=== PATIENT | female | born 1975 | race African-American/Black ===

== ENCOUNTER 2016-11-04 20:03 | Emergency (ER) | payer MEDICARE, OTHER ==
[~2016-11-04] VITALS: Ht 167.6 cm; Wt 104.3 kg
[~2016-11-04 20:03] MED LIST: ACET-704 PO; AMOX1TAB58 PO; ASPI81TA2 PO; AZIT250T PO; BECL8.7A IH; BYSTOLIC20 MG PO; CLOP75TA PO; DIAZ5TAB PO; DICL100G7; DIGO125T PO; ERGO50007 PO; ESCI10TA10 PO; FENT1PAT15 TD; FURO40TA4 PO; GABA100C6; GABA600T2 PO; HYDR-971 PO; HYDR8TAB PO; LEVO150T5 PO; MAGN400C PO; METO-269 PO; METO25TA9 PO; METO50TA10; ONDA4TAB10 PO; OXYC-244 PO; OXYC-250 PO; OXYC-323 PO; Oxygen; PANT40GR PO; POLY17PO5 PO; POTA20PA PO; POTA20TA82 PO; PRED20TA PO; SIMV20TA3 PO; SPIR50TA2 PO; TORS20TA2 PO; TRAZ100T12 PO; VALS40TA2 PO; VALS40TA9; VENTOLIN HFA18 GM; VENTOLIN HFA18 GM INH
[2016-11-04] MEDS ORDERED: NITROGLYCERIN SUBLINGUAL 0.4 MG BOTTLE OF 25. SL PRN (20:30)
[2016-11-04] MEDS ORDERED: MORPHINE SULFATE 2 MG/ML DISP.SYRIN. IV PRN (20:30)
[2016-11-04] MEDS ORDERED: ASPIRIN 81 MG TAB.CHEW PO ONE (21:00)
[2016-11-04 22:04] LABS: BASO # 0.1 x10^3/uL (0.0-0.2); BASO % 1 % (0-3); EOS % 2 % (0-3); HEMATOCRIT 43.5 % (36.0-47.0); HEMOGLOBIN 14.1 g/dL (12.0-15.5); LYMPH % 33 % (24-48); MEAN CORPUSCULAR HEMOGLOBIN 30 pg (25-35); MEAN CORPUSCULAR HGB CONC 33 g/dL (31-37); MEAN CORPUSCULAR VOLUME 92 fL (79-100); MONO % 6 % (0-9); NEUT % 58 % (31-73); PLATELET COUNT 272 x10^3/uL (140-400); RED BLOOD COUNT 4.72 x10^6/uL (3.50-5.40); RED CELL DISTRIBUTION WIDTH 14.5 % (11.5-14.5); WHITE BLOOD COUNT 8.9 x10^3/uL (4.0-11.0)
[2016-11-04 22:15] LABS: CALCIUM 9.1 mg/dL (8.5-10.1); GFR 74.3; POTASSIUM 3.1 mmol/L (3.5-5.1)
[2016-11-04 22:20] LABS: ALBUMIN 3.9 g/dL (3.4-5.0); DIRECT BILIRUBIN 0.1 mg/dL (0.0-0.2); TOTAL BILIRUBIN 0.5 mg/dL (0.2-1.0); TOTAL PROTEIN 7.7 g/dL (6.4-8.2)
[2016-11-04] MEDS ORDERED: ONDANSETRON ODT 4 MG TAB.RAPDIS PO ONE (23:00)
[2016-11-04] MEDS ORDERED: SENN-37 PO (23:04)
--- NOTE | 2016-11-04 23:04 | PHYS DOC ---
Past Medical History Past Medical History: A-Fib, Asthma, Bronchitis, CHF, CVA, DVT, GERD, Hypothyroid, [place], Migraines, Stroke, Other Additional Past Medical Histor: cardiomyopathy, graves, A-fib Past Surgical History: , Hysterectomy, Pacemaker Additional Past Surgical Histo: defib, C- pulse device, thyroidectomy, cardiac surgery Alcohol Use: None Drug Use: None Adult General Chief Complaint Chief Complaint: CHEST PAIN HPI HPI 41-year-old female presenting to the emergency department today with generalized abdominal discomfort constipation nausea and chest pain intermittently for 2 days. The pain is moderate nonradiating cramping and without alleviating factors. She denies fevers chills shortness of breath. Review of Systems Review of Systems ROS negative for shortness of breath. Positive for abdominal pain chest pain nausea. Negative for diarrhea. Positive for constipation. Negative for fevers or chills. All other review of systems is negative unless otherwise noted in history of present illness. Current Medications Current Medications Current Medications Medications (Trade) Dose Ordered Sig/Patsy Start Time Stop Time Status Last Admin Dose Admin Aspirin (Children'S Aspirin) 324 mg 1X ONCE 11/04/16 21:00 11/04/16 21:01 DC 11/04/16 22:00 324 MG Morphine Sulfate 2 mg PRN Q1HR PRN 11/04/16 20:30 11/05/16 00:19 DC Nitroglycerin (Nitrostat) 0.4 mg PRN Q5MIN PRN 11/04/16 20:30 11/05/16 00:19 DC Ondansetron HCl (Zofran Odt) 4 mg 1X ONCE 11/04/16 23:00 11/04/16 23:01 DC 11/04/16 22:54 4 MG Allergies Allergies Allergies Coded Allergies Type Severity Reaction Last Updated Verified EVELYN Inhibitors Allergy Severe Anaphylaxis 01/27/16 Yes Trimethobenzamide HCl Allergy Intermediate 01/27/16 Yes iodine Allergy Intermediate Hives 01/27/16 Yes metoclopramide HCl Allergy Intermediate "jaw paralysis" 01/27/16 Yes pneumococcal vaccine Allergy Intermediate unknown 01/27/16 Yes temazepam Allergy Intermediate 01/27/16 Yes tiagabine Allergy Intermediate causes psychosis 01/27/16 Yes NSAIDS (Non-Steroidal Anti-Inflamma Adverse Reaction Intermediate FLUID RETENTION 01/27/16 Yes immune globulin,horse (equine) Adverse Reaction Intermediate HALLUCINATIONS 01/27/16 Yes Physical Exam Physical Exam Constitutional: Well developed, well nourished, no acute distress, non-toxic appearance. HENT: Normocephalic, atraumatic, bilateral external ears normal, oropharynx moist, no oral exudates, nose normal. [] Eyes: PERRLA, EOMI, conjunctiva normal, no discharge. Neck: Normal range of motion, no tenderness, supple, no stridor. Cardiovascular:Heart rate regular rhythm, no murmur [] Lungs & Thorax: Bilateral breath sounds clear to auscultation Abdomen: Soft nontender abdomen without rebound tenderness or guarding present. Negative McBurneys point. Negative Alvarez sign. No ecchymosis present. Skin: Warm, dry, no erythema, no rash. Back: No tenderness, no CVA tenderness. [] Extremities: No tenderness, no cyanosis, no clubbing, ROM intact, no edema. Neurologic: Alert and oriented X 3, normal motor function, normal sensory function, no focal deficits noted. [] Psychologic: Affect normal, judgement normal, mood normal. [] Current Patient Data Vital Signs Vital Signs Date Time Temp Pulse Resp B/P Pulse Ox O2 Delivery O2 Flow Rate FiO2 11/04/16 20:07 98.1 92 16 150/93 97 Room Air 98.1 Lab Values Laboratory Tests Test 11/04/16 21:55 White Blood Count 8.9x10^3/uL (4.0-11.0) Red Blood Count 4.72x10^6/uL (3.50-5.40) Hemoglobin 14.1g/dL (12.0-15.5) Hematocrit 43.5% (36.0-47.0) Mean Corpuscular Volume 92fL (79-100) Mean Corpuscular Hemoglobin 30pg (25-35) Mean Corpuscular Hemoglobin Concent 33g/dL (31-37) Red Cell Distribution Width 14.5% (11.5-14.5) Platelet Count 272x10^3/uL (140-400) Neutrophils (%) (Auto) 58% (31-73) Lymphocytes (%) (Auto) 33% (24-48) Monocytes (%) (Auto) 6% (0-9) Eosinophils (%) (Auto) 2% (0-3) Basophils (%) (Auto) 1% (0-3) Neutrophils # (Auto) 5.1x10^3uL (1.8-7.7) Lymphocytes # (Auto) 3.0x10^3/uL (1.0-4.8) Monocytes # (Auto) 0.6x10^3/uL (0.0-1.1) Eosinophils # (Auto) 0.2x10^3/uL (0.0-0.7) Basophils # (Auto) 0.1x10^3/uL (0.0-0.2) Sodium Level 141mmol/L (136-145) Potassium Level 3.1mmol/L (3.5-5.1) L Chloride Level 99mmol/L (98-107) Carbon Dioxide Level 28mmol/L (21-32) Anion Gap 14 (6-14) Blood Urea Nitrogen 19mg/dL (7-20) Creatinine 1.0mg/dL (0.6-1.0) Estimated GFR (Cockcroft-Gault) 74.3 Glucose Level 109mg/dL (70-99) H Calcium Level 9.1mg/dL (8.5-10.1) Total Bilirubin 0.5mg/dL (0.2-1.0) Direct Bilirubin 0.1mg/dL (0.0-0.2) Aspartate Amino Transferase (AST) 53U/L (15-37) H Alanine Aminotransferase (ALT) 33U/L (14-59) Alkaline Phosphatase 75U/L (46-116) Troponin I Quantitative < 0.017ng/mL (0.000-0.055) QY-Bgo-O-Type Natriuretic Peptide 363pg/mL (0-124) H Total Protein 7.7g/dL (6.4-8.2) Albumin 3.9g/dL (3.4-5.0) Lipase 144U/L (73-393) Laboratory Tests 11/04/16 21:55 Laboratory Tests 11/04/16 21:55 EKG EKG [] Sinus rhythm with a mildly tachycardic rate. [place] leftward. Intervals are within normal limits. ST segments are congruent. Radiology/Procedures Radiology/Procedures Chest x-ray shows no acute pneumothorax or infiltrate present. Course & Med Decision Making Course & Med Decision Making Pertinent Labs and Imaging studies reviewed. (See chart for details) 41-year-old female presenting to the emergency department with nonspecific complaints of nausea vomiting generalized abdominal pain and chest pain for greater than 2 days. Vital signs afebrile with a regular heart rate. Mildly hypotension. Otherwise unremarkable. Physical exam was unremarkable. Abdomen was nontender to palpation. We are unable to get an IV on the patient. EKG showed mild tachycardia. ST segments congruent. Chest x-ray showed ICD in place. No acute abnormality present. Labs were obtained which were unremarkable. CBC normal. Chemistry panel showed mild hypokalemia. Otherwise the patient had a negative troponin. Patient's chest pain had been present for 24 hours. On reevaluation she improved mildly. She was able to tolerate oral intake. She was subsequently discharged home to follow up with her primary care physician. Belkys Disclaimer Belkys Disclaimer This electronic medical record was generated, in whole or in part, using a voice recognition dictation system. Departure Departure Impression: Primary Impression: Chest pain Additional Impression: Constipation Disposition: 01 HOME, SELF-CARE Condition: STABLE Referrals: SHUKRI GARCIA (PCP) Patient Instructions: Chest Pain (Nonspecific), Constipation, Adult Additional Instructions: Thank you for allowing us to participate in your care today. Followup with your primary care physician in 3 days if your symptoms do not improve. If you do not have a primary care provider you can ask for a list of our primary care providers. Return to the emergency department you have any new or concerning findings. This should be evaluated by the primary care physician and any necessary consulting services for continued management within a few days after discharge. Return to emergency room if you have any new or concerning symptoms including but not limited to fever, chills, nausea, vomiting, intractable pain, any new rashes, chest pain, shortness of air, uncontrolled bleeding, difficulty breathing, and/or vision loss. You may have been prescribed medication that can change in your level of thinking and ability to operate machinery. These medications include hydrocodone and Ativan. Also, Benadryl has been known to do this as well. Be sure to check with your pharmacist and ask if the medications you've prescribed can affect your level of consciousness. I recommend not operating heavy machinery or driving while on medication such as these. Scripts Sennosides/Docusate Sodium (Senokot-S Tablet)1 Each Tablet1 Tab PO BID #14 TAB Prov:DOREEN NATHAN MD 11/04/16 Problem Qualifiers DOREEN NATHAN MD Nov 04, 2016 23:04
[2016-11-04 23:48] VITALS: BP 103/59
--- NOTE | 2016-11-05 06:12 | EKG ---
[facility] [address] [place] [address] Test Date: 2016-11-04 Test Time: 20:10:28 Pat Name: IVA UNGER Department: Room: Gender: F [employer]: : 1975 Requested By: DOREEN NATHAN Order Number: [id number] Reading MD: Mars Ramon Measurements Intervals [place] Rate: 98 P: 42 [place]: 180 QRS: -28 QRSD: 100 T: 92 QT: 376 QTc: 482 Interpretive Statements SINUS RHYTHM LAD INFERIOR INFARCT NON-SPECIFIC ST/T CHANGES Electronically Signed On 11-06-2016 15:29:45 COMPOSITION BOARD PRESS OPERATOR by Mars Ramon
--- NOTE | 2016-11-05 08:28 | RAD ---
EXAM: Chest, single view. HISTORY: Chest pain. COMPARISON: 09/12/2016. FINDINGS: A frontal view of the chest is obtained. There is no infiltrate, effusion or pneumothorax. The heart is normal in size. There is a cardiac pacemaker defibrillator with leads in expected position. There are sternotomy changes. IMPRESSION: No acute pulmonary finding.
== END 2016-11-05 00:06 | disposition home or self-care (01) ==
LOC: ER 20:03
DX: R07.89 Other chest pain (principal); K59.00 Constipation, unspecified; R11.2 Nausea with vomiting, unspecified; I95.9 Hypotension, unspecified; I48.91 Unspecified atrial fibrillation; J45.909 Unspecified asthma, uncomplicated; E03.9 Hypothyroidism, unspecified; I25.2 Old myocardial infarction; I42.9 Cardiomyopathy, unspecified; I50.9 Heart failure, unspecified; K21.9 Gastro-esophageal reflux disease without esophagitis; Z86.73 Personal history of transient ischemic attack (TIA), and cerebral infarction without residual deficits; Z95.0 Presence of cardiac pacemaker; Z88.8 Allergy status to other drugs, medicaments and biological substances; Z88.7 Allergy status to serum and vaccine
CPT/HCPCS: 36415; 71010; 80048; 80076; 83690; 83880; 84484; 85027; 93005; 99285; Q0162

== ENCOUNTER 2016-11-27 23:04 | Emergency (ER) | payer MEDICARE, OTHER ==
[~2016-11-27] VITALS: Ht 167.6 cm; Wt 108.9 kg
[~2016-11-27 23:04] MED LIST changes: +SENN-37 PO
[2016-11-27] MEDS ORDERED: ASPIRIN 81 MG TAB.CHEW PO ONE (23:30)
[2016-11-27 23:50] LABS: CREATININE 1.2 mg/dL (0.6-1.0); GFR 60.2; POTASSIUM 3.5 mmol/L (3.5-5.1)
[2016-11-27 23:55] LABS: ALBUMIN 3.7 g/dL (3.4-5.0); DIRECT BILIRUBIN 0.1 mg/dL (0.0-0.2); TOTAL BILIRUBIN 0.3 mg/dL (0.2-1.0); TOTAL PROTEIN 7.4 g/dL (6.4-8.2)
[2016-11-28 00:06] LABS: BASO # 0.1 x10^3/uL (0.0-0.2); BASO % 1 % (0-3); EOS % 1 % (0-3); HEMATOCRIT 37.7 % (36.0-47.0); HEMOGLOBIN 12.4 g/dL (12.0-15.5); LYMPH # 3.2 x10^3/uL (1.0-4.8); LYMPH % 27 % (24-48); MEAN CORPUSCULAR HEMOGLOBIN 30 pg (25-35); MEAN CORPUSCULAR HGB CONC 33 g/dL (31-37); MEAN CORPUSCULAR VOLUME 93 fL (79-100); MONO % 6 % (0-9); NEUT % 65 % (31-73); PLATELET COUNT 254 x10^3/uL (140-400); RED BLOOD COUNT 4.08 x10^6/uL (3.50-5.40); RED CELL DISTRIBUTION WIDTH 14.4 % (11.5-14.5); WHITE BLOOD COUNT 12.1 x10^3/uL (4.0-11.0)
[2016-11-28] MEDS: NITROGLYCERIN SUBLINGUAL 0.4 MG BOTTLE OF 25. SL PRN ×3 (00:30→00:48)
[2016-11-28] MEDS: MORPHINE SULFATE 2 MG/ML DISP.SYRIN. IV PRN ×2 (00:53→02:03)
[2016-11-28] MEDS ORDERED: MORPHINE SULFATE 2 MG/ML DISP.SYRIN. IV PRN (01:00)
[2016-11-28] MEDS ORDERED: ONDANSETRON PF 4 MG/2 ML VIAL. IV PRN (01:00)
--- NOTE | 2016-11-28 01:04 | PHYS DOC ---
Past Medical History Past Medical History: A-Fib, Asthma, Bronchitis, CHF, CVA, DVT, GERD, Hypothyroid, [place], Migraines, Stroke, Other Additional Past Medical Histor: cardiomyopathy, graves, A-fib, Past Surgical History: , Hysterectomy, Pacemaker Additional Past Surgical Histo: defib, C- pulse device, thyroidectomy, cardiac surgery Alcohol Use: None Drug Use: None Adult General Chief Complaint Chief Complaint: CHEST PAIN HPI HPI 41-year-old female presenting the emergency department today with left chest pain this started around 9:00 tonight. She describes it as an aching pain nonradiating. No alleviating or exacerbating factors present. It happened while she was exercising. She also reports tingling in the face and arms. Tingling was bilateral and nonfocal. She reports feeling lightheaded. She denies vertigo. She has a history of a stroke in the past, DVT and [place]. She denies the pain being sudden in onset. She denies having unilateral leg swelling. She denies difficulty breathing. She denies hemoptysis. ROS is negative for abdominal pain nausea vomiting. She denies focal weakness. She denies vision changes slurring of speech.All other review of systems is negative unless otherwise noted in history of present illness. Review of Systems Review of Systems See above. Current Medications Current Medications Current Medications Medications (Trade) Dose Ordered Sig/Patsy Start Time Stop Time Status Last Admin Dose Admin Aspirin (Children'S Aspirin) 324 mg 1X ONCE 11/27/16 23:30 11/27/16 23:31 DC Morphine Sulfate 2 mg PRN Q2HR PRN 11/28/16 01:00 11/29/16 00:59 Nitroglycerin (Nitrostat) 0.4 mg PRN Q5MIN PRN 11/27/16 23:30 11/28/16 00:48 0.4 MG Ondansetron HCl (Zofran) 4 mg PRN Q8HRS PRN 11/28/16 01:00 11/29/16 00:59 Allergies Allergies Allergies Coded Allergies Type Severity Reaction Last Updated Verified EVELYN Inhibitors Allergy Severe Anaphylaxis 01/27/16 Yes Trimethobenzamide HCl Allergy Intermediate 01/27/16 Yes iodine Allergy Intermediate Hives 01/27/16 Yes metoclopramide HCl Allergy Intermediate "jaw paralysis" 01/27/16 Yes pneumococcal vaccine Allergy Intermediate unknown 01/27/16 Yes temazepam Allergy Intermediate 01/27/16 Yes tiagabine Allergy Intermediate causes psychosis 01/27/16 Yes NSAIDS (Non-Steroidal Anti-Inflamma Adverse Reaction Intermediate FLUID RETENTION 01/27/16 Yes immune globulin,horse (equine) Adverse Reaction Intermediate HALLUCINATIONS 01/27/16 Yes Physical Exam Physical Exam Constitutional: Well developed, well nourished, no acute distress, non-toxic appearance. HENT: Normocephalic, atraumatic, bilateral external ears normal, oropharynx moist, no oral exudates, nose normal. [] Eyes: PERRLA, EOMI, conjunctiva normal, no discharge. Neck: Normal range of motion, no tenderness, supple, no stridor. [] Cardiovascular:Heart rate regular rhythm, no murmur [] Lungs & Thorax: Bilateral breath sounds clear to auscultation Abdomen: Bowel sounds normal, soft, no tenderness, no masses, no pulsatile masses. [] Skin: Warm, dry, no erythema, no rash. Back: No tenderness, no CVA tenderness. Extremities: No tenderness, no cyanosis, no clubbing, ROM intact, no edema. No evidence of DVT. Neurologic: Neuro exam: Mental status: Awake oriented and alert x3 Cranial nerves: Extraocular movements intact, eyebrows arley bilaterally smile symmetric, uvula elevation, shoulder shrug intact, tongue protrusion normal Sensation: equal and normal in all extremities Strength: 5/5 in upper and lower extremities bilaterally Psychologic: Affect normal, judgement normal, mood normal. [] Current Patient Data Vital Signs Vital Signs Date Time Temp Pulse Resp B/P Pulse Ox O2 Delivery O2 Flow Rate FiO2 11/28/16 00:53 19 94 Room Air 11/28/16 00:48 96 112/57 Lab Values Laboratory Tests Test 11/27/16 23:25 11/27/16 23:55 Sodium Level 140mmol/L (136-145) Potassium Level 3.5mmol/L (3.5-5.1) Chloride Level 102mmol/L (98-107) Carbon Dioxide Level 27mmol/L (21-32) Anion Gap 11 (6-14) Blood Urea Nitrogen 15mg/dL (7-20) Creatinine 1.2mg/dL (0.6-1.0) H Estimated GFR (Cockcroft-Gault) 60.2 Glucose Level 111mg/dL (70-99) H Calcium Level 9.0mg/dL (8.5-10.1) Total Bilirubin 0.3mg/dL (0.2-1.0) Direct Bilirubin 0.1mg/dL (0.0-0.2) Aspartate Amino Transferase (AST) 25U/L (15-37) Alanine Aminotransferase (ALT) 22U/L (14-59) Alkaline Phosphatase 70U/L (46-116) Troponin I Quantitative < 0.017ng/mL (0.000-0.055) YO-Qjb-M-Type Natriuretic Peptide 580pg/mL (0-124) H Total Protein 7.4g/dL (6.4-8.2) Albumin 3.7g/dL (3.4-5.0) Lipase 213U/L (73-393) White Blood Count 12.1x10^3/uL (4.0-11.0) H Red Blood Count 4.08x10^6/uL (3.50-5.40) Hemoglobin 12.4g/dL (12.0-15.5) Hematocrit 37.7% (36.0-47.0) Mean Corpuscular Volume 93fL (79-100) Mean Corpuscular Hemoglobin 30pg (25-35) Mean Corpuscular Hemoglobin Concent 33g/dL (31-37) Red Cell Distribution Width 14.4% (11.5-14.5) Platelet Count 254x10^3/uL (140-400) Neutrophils (%) (Auto) 65% (31-73) Lymphocytes (%) (Auto) 27% (24-48) Monocytes (%) (Auto) 6% (0-9) Eosinophils (%) (Auto) 1% (0-3) Basophils (%) (Auto) 1% (0-3) Neutrophils # (Auto) 7.9x10^3uL (1.8-7.7) H Lymphocytes # (Auto) 3.2x10^3/uL (1.0-4.8) Monocytes # (Auto) 0.7x10^3/uL (0.0-1.1) Eosinophils # (Auto) 0.2x10^3/uL (0.0-0.7) Basophils # (Auto) 0.1x10^3/uL (0.0-0.2) Laboratory Tests 11/27/16 23:55 Laboratory Tests 11/27/16 23:25 EKG EKG [] EKG shows sinus rhythm with a regular rate. [place] is leftward. Intervals show prolonged QT. Otherwise unremarkable. ST segments are congruent. Radiology/Procedures Radiology/Procedures [] Course & Med Decision Making Course & Med Decision Making Pertinent Labs and Imaging studies reviewed. (See chart for details) [] 41-year-old female presenting to the emergency department with chest pain. She received aspirin at 9:00 PM tonight prior to arrival. Vital signs showed afebrile. Normal blood pressure. Satting well on room air. Pulse mildly elevated. Physical exam was unremarkable. Neuro exam unremarkable. Numbness had improved. EKG unremarkable. Chest x-ray chest x-ray showed no acute or obvious infiltrate or pneumothorax. Blood work obtained which showed a mild elevation in white blood cell count. Nonspecific. Chemistry panel showed mild elevation in creatinine. Troponin negative. On reevaluation the patient's pain had not improved. I discussed with the patient and recommended admission to the hospital for serial blood testing given the patient's timing onset and past medical history. The patient at that time expressed their desire to leave. I informed the patient of their right to a medical screening exam and any treatment and/or stabilization that may be necessary regardless of their ability to pay. The patient appears to have intact insight, judgment, and reason. In my opinion, this patient has the capacity to make decisions. I felt that the patient had medical decision making capabilities because she showed insight into her situation and was able to verbal explain her reasoning in her own words. The patient presented with chest pain and I am concerned that this could be heart attack. My initial plan prior to the pt expressing the desire to leave was serial blood testing with cardiology consultation. I explained the risk of and disability to the patient in plain language which they were able to demonstrate in their own words verbal understanding. Specifically, I explained the risk of disability coma. I discussed the limitations of the workup thus far included but were not limited to the need for serial blood tests and specialist consultation. The pt has verbalized understanding of my concerns. 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 I explained that at any time if the patient changed their mind, we are always open and would be happy to have them back. The patient refused further care and then left against medical advice. Dragon Disclaimer Dragon Disclaimer This electronic medical record was generated, in whole or in part, using a voice recognition dictation system. Departure Departure Impression: Primary Impression: Chest pain in adult Disposition: 07 AGAINST MEDICAL ADVICE Admitting Physician: Other (VASIREDY) Condition: STABLE Referrals: SHUKRI GARCIA (PCP) DOREEN NATHAN MD Nov 28, 2016 01:04
[2016-11-28 03:40] VITALS: BP 116/71
--- NOTE | 2016-11-28 04:28 | ACF ---
Admission Forms Criteria CARDIOLOGY GRG Clinical Indications for Admission to Inpatient Care ( Place 'X' for any and all applicable criteria): Hospital admission is needed for appropriate care of the patient because of ANY ONE of the following (1): [ ] I. Hemodynamic instability as indicated by ALL of the following (1)(2)(3) (4)(5) [ ]a) Vital signs or other findings not as expected for chronic patient condition or baseline [ ]b) Instability indicated by ANY ONE of the following: [ ]i) Hypotension [ ]ii) Symptomatic Tachycardia unresponsive to treatment ( e.g., analgesia, fluids, sedation as indicated) [ ]iii) Inadequate perfusion indicated by ANY ONE of the following: [ ] 1) Lactic acidosis (> 2 mmol/L) [ ] 2) New abnormal capillary refill (> 3 seconds) [ ] 3) Reduced urine output [ ] 4) New altered mental status [ ]iv) Orthostatic vital sign changes unresponsive to treatment (e.g., fluids) [ ]v) IV inotropic or vasopressor medication required to maintain adequate blood pressure or perfusion [ ] II. Severe heart failure as indicated by ANY ONE of the following(17)(18) [ ]a) Respiratory distress [ ]b) Hypotension [ ]c) Anasarca (refractory to outpatient therapy) [ ]d) Cardiac arrhythmias of immediate concern [ ]e) Myocardial ischemia [ ] III. Cardiac arrhythmias or findings of immediate concern indicated by ANY ONE of the following (19)(20): [ ] a) Heart rhythms that are inherently dangerous or unstable indicated by ANY ONE of the following (21)(22)(23): [ ] i) Resuscitated ventricular fibrillation or cardiac arrest [ ] ii) Ventricular escape rhythm [ ] iii) Sustained ventricular tachycardia (30 seconds or more of ventricular rhythm at greater than 100 beats per minute) [ ] iv) Nonsustained ventricular tachycardia and ANY ONE of the following: [ ] 1) Suspected cardiac ischemia as cause or consequence of ventricular tachycardia [ ] 2) In setting of acute myocarditis [ ] b) Unstable cardiac conduction defects indicated by ANY ONE of the following(23)(24)(25) [ ] i) Type II second-degree atrioventricular block [ ]ii) Third-degree atrioventricular block [ ]iii) New-onset left bundle branch block with suspected myocardial ischemia [ ]c) Any heart rhythm and ANY ONE of the following (21)(22)(26)(27) (28) [ ] i) Continuous long-term ECG monitoring needed (e.g., initiation of drug requiring monitoring for more than 24 hours) [ ] ii) Patient has automatic implanted cardioverter defibrillator that is repeatedly firing, malfunctioning, or in need of immediate adjustment of settings beyond the scope of ambulatory or observation care [ ]d) Heart rhythms of concern due to ANY ONE of the following: [ ] i) Hypotension [ ] ii) Respiratory distress [ ] iii) Association with other significant symptoms (e.g., bradycardia with syncope or ongoing dizziness, supraventricular tachycardia with chest pain (14)(15)(17) [ ] IV. Monitoring for cardiac contusion beyond the scope of observation care needed [A](30)(31)(32) [ ] V. Surgical or device complication (e.g., valve replacement complication , pacemaker dysfunction) (35)(41)(44)(45)(46) [ ] . Inpatient palliative care needed. [B](49) Also use Inpatient Palliative Care Criteria [ ] VII. Nonbacterial thrombotic (marantic) endocarditis (36)(43)(47)(48) [X] VIII. Cardiology condition, symptom, or finding for which emergency and observation care has failed or are not considered appropriate. [ ] IX. Acute valvular disease requiring inpatient as indicated by ANY ONE of the following (41) [ ]a) Acute valvular regurgitation (42) [ ]b) Noninfectious valvulitis (43) [ ]c) Obstructive valve thrombosis [ ]d) Paravalvular leak [ ]e) Other significant valvular disorder remaining after emergency or observation level of care (as appropriate) [ ]X. Pericardial disease requiring inpatient treatment as indicated by ANY ONE of the following (33)(34)(35)(36)(37) [ ]a) Suspected tamponade (38)(39)(40) [ ]b) Hemopericardium [ ]c) Other significant pericardial disorder remaining after emergency or observation level of care (as appropriate) [ ] XI. Cardiac ischemia beyond scope of emergency and observation care. [ ] XII. Hypertension requiring inpatient treatment as indicated by ANY ONE of the following (6)(7)(8) [ ]a) SBP greater than 220 mm Hg or DBP greater than 120 mmHg despite treatment [ ]b) SBP greater than 140 mm Hg or DBP greater than 100 mm Hg with evidence of acute end organ damage as indicated by ANY ONE of the following [ ] i) Encephalopathy [ ] ii) Acute renal failure as indicated by new onset of ANY ONE of the following (9)(10)(11)(12)(13) [ ]1) 3-fold rise in serum creatinine from baseline [ ]2) Serum creatinine greater than 4 mg/dL ( 354 micromoles/L) with acute rise greater than 0.5 mg/dL (44.2 micromoles/L) [ ]3) Reduction of more than 75% in estimated glomerular filtration rate from baseline [ ]4) Estimated glomerular filtration rate less than 35 mL/min/1.73m2 (0.59 mL/sec/1.73m2) in child up to 18 years of age [ ]5) Cessation of urine output indicated by ALL of the following [ ]A. Adequate volume status [ ]B. Inadequate urine output as indicated by ANY ONE of the following [ ]a. Urine output less than 0.3 mL/kg/hr for 24 hours [ ]b. Anuria (urine output less than 0.1 mL/kg/hr) for 12 hours [ ] iii) Aortic dissection [ ] iv) Myocardial Ischemia [ ] v) Left ventricular heart failure [ ]vi) Retinal Hemorrhage [ ]vii) Other significant finding [ ]c) Hypertension in child requiring inpatient treatment as indicated by ALL of the following(14)(15)(16) [ ] i) Outpatient treatment not effective, not available, or not appropriate [ ]ii) SBP or DBP greater than 95th percentile for age [ ]iii) Evidence of acute end organ damage as indicated by ANY ONE of the following [ ]1) Altered mental status [ ]2) Acute renal failure as indicated by new onset of ANY ONE of the following(9)(10)(11)(12)(13) [ ]A. 3-fold rise in serum creatinine from baseline [ ]B. Serum creatinine greater than 4 mg/dL (354 micromoles/L) with acute rise greater than 0.5 mg/dL (44.2 micromoles/L) [ ]C. Reduction of more than 75% in estimated glomerular filtration rate from baseline [ ]D. Estimated glomerular filtration rate less than 35 mL/min/1.73m2 (0.59 mL/sec/1.73m2) in child up to 18 years of age [ ]E. Cessation of urine output indicated by ALL of the following [ ]a. Adequate volume status [ ]b. Inadequate urine output as indicated by ANY ONE of the following [ ]i) Urine output less than 0.3 mL/kg/hr for 24 hours [ ]ii) Anuria ( urine output less than 0.1 mL/kg/hr) for 12 hours [ ]3) Severe headache [ ]4) Visual disturbance [ ]5) Retinal hemorrhage [ ]6) Other significant finding [ ]XIII. Complications of transplanted heart indicated by ANY ONE of the following(61): [ ]a) Acute graft rejection requiring inpatient management (eg, intravenous immunosuppression)(62)(63) [ ]b) Acute graft heart failure indicated by ANY ONE of the following(64): [ ]i) Hemodynamic instability [ ]ii) Cardiac arrhythmias of immediate concern [ ]iii) Pulmonary edema that is very severe (eg, mechanical ventilation needed, imminent or likely, need for 100% oxygen to keep oxygen saturation above 90%) [ ]iv) Pulmonary edema that is persistent as indicated by ALL of the following: [ ]1) New need for oxygen therapy to keep oxygen saturation above 90% (or increased FiO2 need from baseline) [ ]2) Has not improved sufficiently with emergency department or observation care IV diuretics or other heart failure treatments[E] [ ]v) Altered mental status that is severe or persistent [ ]vi) Increased creatinine (new on laboratory test) with reduction of more than 50% in estimated glomerular filtration rate from baseline [ ]vii) Progressively (ongoing) rising creatinine (known from past laboratory test) with reduction of more than 25% in estimated glomerular filtration rate from baseline [ ]viii) Acute renal failure [ ]ix) Acute peripheral ischemia (eg, examination shows pulseless, cool, mottled, or cyanotic extremity) [ ]x) Pulmonary artery catheter monitoring needed [ ]xi) Other sign or symptom of heart failure requiring inpatient treatment (ie, too severe or not responsive to outpatient and observation care treatment) [ ]c) Infection requiring inpatient management (eg, Hemodynamic instability, need for intravenous antimicrobial treatment)(66)(67)(68)(69)(70) [ ]d) Cardiac allograft vasculopathy requiring inpatient management ( eg evidence of cardiac ischemia)(71) [ ]e) Other complication of transplanted heart (eg, stroke, severe pulmonary hypertension, severe valvular dysfunction) requiring inpatient management(72) The original [facility] content created by [facility] has been revised. The portions of the content which have been revised are identified through the use of italic text or in bold, and [facility] has neither reviewed nor approved the modified material. All other unmodified content is copyright [facility]. Please see references footnoted in the original [facility] edition 2016 Admission Criteria Met?: Yes JONATHAN DENNISON Nov 28, 2016 04:28
--- NOTE | 2016-11-28 06:21 | EKG ---
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
--- NOTE | 2016-11-28 07:06 | RAD ---
Portable chest, 11/28/2016: History: Chest pain Comparison is made to a study from 11/04/2016. There is been a previous sternotomy. Transvenous and old epicardial pacing leads remain in place. The heart size and pulmonary vascularity are normal. No pulmonary infiltrate is seen. There is no evidence of pleural fluid. IMPRESSION: No acute cardiopulmonary abnormality is detected.
== END 2016-11-28 03:50 | disposition left against medical advice (07) ==
LOC: ER 23:04 → 5 NORTH 11-28 01:02 → UNDOADMOB 11-28 01:02 → ER 11-28 03:50
DX: R07.89 Other chest pain (principal); I48.91 Unspecified atrial fibrillation; J45.909 Unspecified asthma, uncomplicated; I50.9 Heart failure, unspecified; E03.9 Hypothyroidism, unspecified; I25.2 Old myocardial infarction; I42.9 Cardiomyopathy, unspecified; K21.9 Gastro-esophageal reflux disease without esophagitis; Z86.73 Personal history of transient ischemic attack (TIA), and cerebral infarction without residual deficits; Z86.718 Personal history of other venous thrombosis and embolism; Z88.8 Allergy status to other drugs, medicaments and biological substances; Z88.7 Allergy status to serum and vaccine; Z88.1 Allergy status to other antibiotic agents; Z88.6 Allergy status to analgesic agent; Z95.810 Presence of automatic (implantable) cardiac defibrillator; Z96.89 Presence of other specified functional implants
CPT/HCPCS: 36415; 71010; 80048; 80076; 83690; 83880; 84484; 85027; 93005; 96374; 96376; 99285; J2270

== ENCOUNTER 2016-12-16 21:06 | Emergency (ER) | payer MEDICARE, OTHER ==
[~2016-12-16] VITALS: Ht 170.2 cm; Wt 108.9 kg
[2016-12-16 21:33] VITALS: BP 145/89
--- NOTE | 2016-12-16 21:46 | PHYS DOC ---
Past Medical History Past Medical History: A-Fib, Asthma, Bronchitis, CHF, CVA, DVT, GERD, Hypothyroid, [place], Migraines, Stroke, Other Additional Past Medical Histor: cardiomyopathy, graves, VFIB Past Surgical History: , Hysterectomy, Pacemaker Additional Past Surgical Histo: defib, C- pulse device, thyroidectomy, cardiac surgery Alcohol Use: None Drug Use: None Adult General Chief Complaint Chief Complaint: LOWER BACK PAIN OR INJURY HPI HPI Patient is a 41 year old female presents emergency room the complaint of low back pain after slipping and falling in the shower at approximately 11 PM last night. Patient denies striking her head. She denies any loss of consciousness. Patient denies any radiation of the pain. Patient denies loss of bowel or bladder control or saddle anesthesia. Patient denies any history of spinal column fractures or spinal cord injuries. She denies any history of bone forming disorders. Review of Systems Review of Systems Constitutional: Denies fever or chills [] Eyes: Denies change in visual acuity, redness, or eye pain [] HENT: Denies nasal congestion or sore throat [] Respiratory: Denies cough or shortness of breath [] Cardiovascular: No additional information not addressed in HPI [] GI: Denies abdominal pain, nausea, vomiting, bloody stools or diarrhea [] : Denies dysuria or hematuria [] Musculoskeletal: Denies back pain or joint pain [] Integument: Denies rash or skin lesions [] Neurologic: Denies headache, focal weakness or sensory changes [] Endocrine: Denies polyuria or polydipsia [] Current Medications Current Medications Current Medications Medications (Trade) Dose Ordered Sig/Patsy Start Time Stop Time Status Last Admin Dose Admin Acetaminophen/ Hydrocodone Bitart (Lortab 7.5/325) 1 tab 1X ONCE 12/16/16 22:15 12/16/16 22:16 DC 12/16/16 22:32 1 TAB Allergies Allergies Allergies Coded Allergies Type Severity Reaction Last Updated Verified EVELYN Inhibitors Allergy Severe Anaphylaxis 01/27/16 Yes Trimethobenzamide HCl Allergy Intermediate 01/27/16 Yes iodine Allergy Intermediate Hives 01/27/16 Yes metoclopramide HCl Allergy Intermediate "jaw paralysis" 01/27/16 Yes pneumococcal vaccine Allergy Intermediate unknown 01/27/16 Yes temazepam Allergy Intermediate 01/27/16 Yes tiagabine Allergy Intermediate causes psychosis 01/27/16 Yes NSAIDS (Non-Steroidal Anti-Inflamma Adverse Reaction Intermediate FLUID RETENTION 01/27/16 Yes immune globulin,horse (equine) Adverse Reaction Intermediate HALLUCINATIONS 01/27/16 Yes Physical Exam Physical Exam Constitutional: Well developed, well nourished, mild distress, non-toxic appearance. Patient is crying. HENT: Normocephalic, atraumatic, bilateral external ears normal, oropharynx moist, no oral exudates, nose normal. [] Eyes: PERRLA, EOMI, conjunctiva normal, no discharge. [] Neck: Normal range of motion, no tenderness, supple, no stridor. [] Cardiovascular:Heart rate regular rhythm, no murmur [] Lungs & Thorax: Bilateral breath sounds clear to auscultation [] Abdomen: Bowel sounds normal, soft, no tenderness, no masses, no pulsatile masses. [] Skin: Warm, dry, no erythema, no rash. [] Back: Patient's back is without evidence of injury such as bruising or abrasions. There is pant tenderness to bilateral paraspinous soft tissues in midline at the level of L2-L5 down into the sacral region. There is no palpable defect, deformity or spasm. There is no instability or crepitus Extremities: No tenderness, no cyanosis, no clubbing, ROM intact, no edema. [] Neurologic: Alert and oriented X 3, normal motor function, normal sensory function, no focal deficits noted. [] Psychologic: Affect normal, judgement normal, mood normal. [] Current Patient Data Vital Signs Vital Signs Date Time Temp Pulse Resp B/P Pulse Ox O2 Delivery O2 Flow Rate FiO2 12/16/16 22:32 Room Air 12/16/16 21:33 98.1 60 20 97 98.1 EKG EKG [] Radiology/Procedures Radiology/Procedures 3 views of patient's lumbar sacral spine were performed with adequate technique. There is no evidence of acute bony process. Patient has adequate alignment of her lumbosacral spine. A normal lordotic curve is seen. There is no pathologic soft tissue swelling. Course & Med Decision Making Course & Med Decision Making Pertinent Labs and Imaging studies reviewed. (See chart for details) [] Dragon Disclaimer Dragon Disclaimer This electronic medical record was generated, in whole or in part, using a voice recognition dictation system. Departure Departure Impression: Primary Impression: Lumbosacral strain Disposition: 01 HOME, SELF-CARE Condition: GOOD Referrals: SHUKRI GARCIA (PCP) Patient Instructions: Lumbosacral Strain Additional Instructions: 1. The x-rays of your lower back today showed no broken bones or alignment problem of the spine. 2. Take the medication as prescribed. 3. Review the discharge instructions provided for self-care and reasons to return the emergency department. 4. Contact primary care doctor's office in the morning to schedule follow-up appointment. Scripts Orphenadrine Citrate 100 Mg Tablet.er100 Mg PO BID muscle relaxer #14 Prov:SOTO RDZ 12/16/16 Hydrocodone/Apap 5-325 ([place] 5-325 Tablet)1 Each Tablet1 Tab PO PRN Q6HRS PRN PAIN #15 TAB Prov:SOTO RDZ 12/16/16 SOTO RDZ Dec 16, 2016 21:46
[2016-12-16] MEDS ORDERED: HYDROCODONE/APAP 7.5/325MG TABLET. PO ONE (22:15)
[2016-12-16] MEDS ORDERED: ORPH100T PO (22:37)
[2016-12-16] MEDS ORDERED: HYDR-971 PO (22:37)
--- NOTE | 2016-12-17 07:39 | RAD ---
Lumbar spine, 3 views, 12/16/2016: History: Fall, pain No fracture or dislocation is identified. The paraspinous soft tissues are unremarkable. A transvenous pacing device is in place. IMPRESSION: No acute lumbar spine abnormality is detected.
== END 2016-12-16 23:05 | disposition home or self-care (01) ==
LOC: ER 21:23
DX: S39.012A Strain of muscle, fascia and tendon of lower back, initial encounter (principal); I25.2 Old myocardial infarction; I48.91 Unspecified atrial fibrillation; J45.909 Unspecified asthma, uncomplicated; I50.9 Heart failure, unspecified; I42.9 Cardiomyopathy, unspecified; K21.9 Gastro-esophageal reflux disease without esophagitis; I49.01 Ventricular fibrillation; G43.909 Migraine, unspecified, not intractable, without status migrainosus; E89.0 Postprocedural hypothyroidism; Z86.73 Personal history of transient ischemic attack (TIA), and cerebral infarction without residual deficits; Z88.6 Allergy status to analgesic agent; Z88.7 Allergy status to serum and vaccine; Z88.8 Allergy status to other drugs, medicaments and biological substances; Z88.1 Allergy status to other antibiotic agents; Z95.810 Presence of automatic (implantable) cardiac defibrillator; Z95.1 Presence of aortocoronary bypass graft; Z96.89 Presence of other specified functional implants; Z86.718 Personal history of other venous thrombosis and embolism; Z90.710 Acquired absence of both cervix and uterus; W18.2XXA Fall in (into) shower or empty bathtub, initial encounter; Y93.89 Activity, other specified; Y92.89 Other specified places as the place of occurrence of the external cause; Y99.8 Other external cause status
CPT/HCPCS: 72100; 99284

== ENCOUNTER 2016-12-17 21:14 | Emergency (ER) | payer MEDICARE, OTHER ==
[2016-12-16 21:33] VITALS: BP 145/89
[~2016-12-17 21:14] MED LIST changes: +ORPH100T PO
== END 2016-12-17 22:12 | disposition left against medical advice (07) ==
LOC: ER 21:14
DX: R11.2 Nausea with vomiting, unspecified (principal); R10.9 Unspecified abdominal pain; Z53.21 Procedure and treatment not carried out due to patient leaving prior to being seen by health care provider

== ENCOUNTER 2017-01-22 18:30 | Emergency (ER) | payer MEDICARE, OTHER ==
[~2017-01-22] VITALS: Ht 170.2 cm; Wt 108.9 kg
[2017-01-22 18:44] VITALS: BP 148/82
[2017-01-22] MEDS ORDERED: HYDR-971 PO (19:15)
[2017-01-22] MEDS ORDERED: PRED-220 PO (19:15)
--- NOTE | 2017-01-22 19:15 | PHYS DOC ---
Past Medical History Past Medical History: A-Fib, Asthma, Bronchitis, CHF, CVA, DVT, GERD, Hypothyroid, [place], Migraines, Stroke, Other Additional Past Medical Histor: cardiomyopathy, graves, VFIB Past Surgical History: , Hysterectomy, Pacemaker Additional Past Surgical Histo: defib, C- pulse device, thyroidectomy, cardiac surgery Alcohol Use: None Drug Use: None Adult General Chief Complaint Chief Complaint: BACK PAIN OR INJURY HPI HPI Patient is a 41 year old female, with a history of multiple medical problems including sciatica, presents emergency room with complaint of atraumatic low back pain that primarily radiates down her left leg. She states is been increasing in intensity over the past 3-4 days. Patient denies saddle anesthesia or incontinence of urine or bowel. Patient denies any new symptoms with her sciatica at this time. She also denies any chest or abdominal pain at this time. She denies any shortness of breath. Patient states that she is pending evaluation by a back specialist. She has not been able to have an MRI done because she has a pacemaker. Review of Systems Review of Systems Constitutional: Denies fever or chills [] Eyes: Denies change in visual acuity, redness, or eye pain [] HENT: Denies nasal congestion or sore throat [] Respiratory: Denies cough or shortness of breath [] Cardiovascular: No additional information not addressed in HPI [] GI: Denies abdominal pain, nausea, vomiting, bloody stools or diarrhea [] : Denies dysuria or hematuria [] Musculoskeletal: Denies back pain or joint pain [] Integument: Denies rash or skin lesions [] Neurologic: Denies headache, focal weakness or sensory changes [] Endocrine: Denies polyuria or polydipsia [] Current Medications Current Medications Current Medications Medications (Trade) Dose Ordered Sig/Patsy Start Time Stop Time Status Last Admin Dose Admin Morphine Sulfate 10 mg 1X ONCE 01/22/17 19:30 01/22/17 19:30 DC 01/22/17 19:23 10 MG Allergies Allergies Allergies Coded Allergies Type Severity Reaction Last Updated Verified EVELYN Inhibitors Allergy Severe Anaphylaxis 01/27/16 Yes Trimethobenzamide HCl Allergy Intermediate 01/27/16 Yes iodine Allergy Intermediate Hives 01/27/16 Yes metoclopramide HCl Allergy Intermediate "jaw paralysis" 01/27/16 Yes pneumococcal vaccine Allergy Intermediate unknown 01/27/16 Yes temazepam Allergy Intermediate 01/27/16 Yes tiagabine Allergy Intermediate causes psychosis 01/27/16 Yes NSAIDS (Non-Steroidal Anti-Inflamma Adverse Reaction Intermediate FLUID RETENTION 01/27/16 Yes immune globulin,horse (equine) Adverse Reaction Intermediate HALLUCINATIONS 01/27/16 Yes Physical Exam Physical Exam Constitutional: Well developed, well nourished, no acute distress, non-toxic appearance. [] HENT: Normocephalic, atraumatic, bilateral external ears normal, oropharynx moist, no oral exudates, nose normal. [] Eyes: PERRLA, EOMI, conjunctiva normal, no discharge. [] Neck: Normal range of motion, no tenderness, supple, no stridor. [] Cardiovascular:Heart rate regular rhythm, no murmur [] Lungs & Thorax: Bilateral breath sounds clear to auscultation [] Abdomen: Bowel sounds normal, soft, no tenderness, no masses, no pulsatile masses. [] Skin: Warm, dry, no erythema, no rash. [] Back: Patient's back is normal in appearance without any skin lesions. There is no CVA tenderness. Patient has tenderness to the bilateral paraspinous soft tissues at the level of L4, L5 and S1. This tenderness extends to the left gluteus along the sciatic track to the lateral aspect of the left hip and inferiorly into the buttock. There is no palpable defect, deformity, mass or spasm. Extremities: There are no dystrophic changes to the lower extremities. Strength is equal bilaterally. Neurologic: Alert and oriented X 3, normal motor function, normal sensory function, no focal deficits noted. [] Psychologic: Affect normal, judgement normal, mood normal. [] Current Patient Data Vital Signs Vital Signs Date Time Temp Pulse Resp B/P Pulse Ox O2 Delivery O2 Flow Rate FiO2 01/22/17 18:44 98.1 59 20 98 Room Air 98.1 EKG EKG [] Radiology/Procedures Radiology/Procedures [] Course & Med Decision Making Course & Med Decision Making Pertinent Labs and Imaging studies reviewed. (See chart for details) [] Dragon Disclaimer Dragon Disclaimer This electronic medical record was generated, in whole or in part, using a voice recognition dictation system. Departure Departure Impression: Primary Impression: Sciatic leg pain Disposition: 01 HOME, SELF-CARE Condition: GOOD Referrals: NO PCP (PCP) Patient Instructions: Sciatica, [id number] Additional Instructions: 1. Take the medication as prescribed. 2. Review the discharge instructions provided for self-care and reasons to return the emergency department. 3. Be sure to establish contact with primary care doctor as well as the back specialist. Scripts Prednisone 10 Mg [id number] Mg PO UD PREDNISONE TAPER #39 TAB Ref 0 Take 3 tablets by mouth twice a day for 3 days, then take 2 tablets by mouth twice a day for 3 days, then take 1 tablet by mouth twice a day for 3 days, then take 1 tablet by mouth daily x 3 days, then stop. Prov:SOTO RDZ 01/22/17 Hydrocodone/Apap 5-325 ([place] 5-325 Tablet)1 Each Tablet1 Tab PO PRN Q6HRS PRN PAIN #15 TAB Prov:SOTO RDZ 01/22/17 SOTO RDZ Jan 22, 2017 19:15
[2017-01-22] MEDS ORDERED: MORPHINE SULFATE 10 MG/ML VIAL. IM ONE (19:30)
== END 2017-01-22 19:29 | disposition home or self-care (01) ==
LOC: ER 18:30
DX: M54.32 Sciatica, left side (principal); J45.909 Unspecified asthma, uncomplicated; I48.91 Unspecified atrial fibrillation; I25.2 Old myocardial infarction; E03.9 Hypothyroidism, unspecified; G43.909 Migraine, unspecified, not intractable, without status migrainosus; K21.9 Gastro-esophageal reflux disease without esophagitis; I50.9 Heart failure, unspecified; Z86.73 Personal history of transient ischemic attack (TIA), and cerebral infarction without residual deficits; Z90.710 Acquired absence of both cervix and uterus; Z95.810 Presence of automatic (implantable) cardiac defibrillator; Z88.7 Allergy status to serum and vaccine; Z88.8 Allergy status to other drugs, medicaments and biological substances; Z88.6 Allergy status to analgesic agent; Z91.041 Radiographic dye allergy status
CPT/HCPCS: 96372; 99283; J2270

== ENCOUNTER 2017-02-07 21:02 | Inpatient (IN) | payer MEDICARE, OTHER ==
[~2017-02-07] VITALS: Ht 170.2 cm; Wt 112.6 kg
[~2017-02-07 21:02] MED LIST changes: -METO50TA10; +METO50TA10 PO; +PRED-220 PO; -VALS40TA9; +VALS40TA9 PO
[2017-02-07 21:52] LABS: BASO # 0.1 x10^3/uL (0.0-0.2); BASO % 1 % (0-3); EOS % 2 % (0-3); HEMATOCRIT 37.7 % (36.0-47.0); HEMOGLOBIN 12.4 g/dL (12.0-15.5); LYMPH # 3.6 x10^3/uL (1.0-4.8); LYMPH % 35 % (24-48); MEAN CORPUSCULAR HEMOGLOBIN 30 pg (25-35); MEAN CORPUSCULAR HGB CONC 33 g/dL (31-37); MEAN CORPUSCULAR VOLUME 91 fL (79-100); MONO % 5 % (0-9); NEUT % 58 % (31-73); PLATELET COUNT 282 x10^3/uL (140-400); RED BLOOD COUNT 4.15 x10^6/uL (3.50-5.40); RED CELL DISTRIBUTION WIDTH 14.2 % (11.5-14.5); WHITE BLOOD COUNT 10.3 x10^3/uL (4.0-11.0)
[2017-02-07] MEDS ORDERED: ONDANSETRON PF 4 MG/2 ML VIAL. IV ONE (22:00)
[2017-02-07] MEDS ORDERED: IV NORMAL SALINE 1000ML BAG 1,000 ML IV SCH (22:00)
[2017-02-07 22:02] LABS: PROTHROMBIN TIME PATIENT 12.8 SEC (11.7-14.0)
[2017-02-07 22:14] LABS: ALBUMIN 3.5 g/dL (3.4-5.0); CALCIUM 8.9 mg/dL (8.5-10.1); CREATININE 1.1 mg/dL (0.6-1.0); DIRECT BILIRUBIN 0.1 mg/dL (0.0-0.2); GFR 66.6; TOTAL BILIRUBIN 0.3 mg/dL (0.2-1.0); TOTAL PROTEIN 8.1 g/dL (6.4-8.2)
[2017-02-07 22:19] LABS: POTASSIUM 2.7 mmol/L (3.5-5.1)
[2017-02-07] MEDS ORDERED: LORAZEPAM 2 MG/ML VIAL. IV ONE (22:30)
[2017-02-07] MEDS ORDERED: POTASSIUM CHLORIDE 20 MEQ TABLET.ER. PO ONE (22:30)
[2017-02-07] MEDS: IV NORMAL SALINE 1000ML BAG 1,000 ML IV SCH (22:56)
[2017-02-07] MEDS ORDERED: ACETAMINOPHEN 325 MG TABLET. PO PRN (23:00)
[2017-02-07] MEDS ORDERED: POTASSIUM CL 40MEQ IN 0.9%NACL 1,000 ML IV ONE (23:00)
[2017-02-07] MEDS ORDERED: ONDANSETRON PF 4 MG/2 ML VIAL. IV PRN (23:00)
[2017-02-08] VITALS (7 sets, daily range): BP systolic 82–119; BP diastolic 39–85
[2017-02-08] MEDS ORDERED: MORPHINE SULFATE 4 MG/ML DISP.SYRIN. IV ONE (00:30)
[2017-02-08] MEDS ORDERED: PANT40TA3 PO (01:58)
[2017-02-08] MEDS ORDERED: LORAZEPAM 2 MG/ML VIAL. IV PRN (02:15)
[2017-02-08] MEDS: NITROGLYCERIN OINT 1 GM PACKET. TP SCH ×3 (02:35→12:02)
[2017-02-08] MEDS: MORPHINE SULFATE 2 MG/ML DISP.SYRIN. IV PRN ×4 (02:36→13:43)
--- NOTE | 2017-02-08 06:53 | EKG ---
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
--- NOTE | 2017-02-08 07:06 | EKG ---
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
--- NOTE | 2017-02-08 07:19 | PHYS DOC ---
Past Medical History Past Medical History: A-Fib, Asthma, Bronchitis, CHF, CVA, DVT, GERD, Hypothyroid, IN, Migraines, Stroke, Other Additional Past Medical Histor: cardiomyopathy, graves, VFIB Past Surgical History: , Hysterectomy, Pacemaker Additional Past Surgical Histo: defib, C- pulse device, thyroidectomy, cardiac surgery Alcohol Use: None Drug Use: None Adult General Chief Complaint Chief Complaint: CHEST PAIN HPI HPI Patient is a 41 year old female with a history significant for CHF, stroke 2, status post cardiac arrest 2, status post AICD placement, cardiomyopathy, CHF, atrial fibrillation, atrial flutter, hypothyroidism who presents here today complaining of chest pain and lightheadedness that started earlier this evening. Patient reports that she feels like her heart is racing. Patient reports on Saturday she had an episode where she passed out while walking up the stairs and appears to have had injury to her right eyebrow. Patient denies any fevers shakes chills diarrhea abdominal pain. Patient reports she is nauseous and having had one episode of vomiting but none since Saturday. Patient denies any radiating pain. Patient reports chest pain started approximately 1 PM and has been constant since. Patient's primary care doctor is at [facility] and her workers compensation claims assistant is Dr. Walker. Patient's ER hospital course was significant for normal labs. Patient had a normal TSH normal troponin. Patient's d-dimer was slightly elevated however she is allergic to contrast dye so the CT scan with contrast was canceled. Patient was tachycardic upon arrival to the ER to a heart rate of 1-10 to 1:30. After the IV fluids the heart rate was approximately 100-105. Patient reports she does feel slightly better however she still feels very anxious and feels like her heart is racing out of her chest. Patient denies any calf tenderness. Patient has a lower extremity edema. Patient has any history of PE or DVT. Patient's physical exam the ER was unremarkable except for her tachycardia. #1 tachycardia with chest pain. Etiology unclear patient be admitted for further evaluation. Patient improved with IV fluids. A suspicion currently for PE is extremely low. Despite her elevated d-dimer I think it would be appropriate to continue with hydration and observing this patient prior to proceeding to any further diagnostic tests for a PE. Review of Systems Review of Systems Constitutional: Denies fever or chills [] Eyes: Denies change in visual acuity, redness, or eye pain [] HENT: Denies nasal congestion or sore throat [] All other review systems are negative except as documented in history of present illness portion. Current Medications Current Medications Current Medications Medications (Trade) Dose Ordered Sig/Patsy Start Time Stop Time Status Last Admin Dose Admin Lorazepam (Ativan) 0.5 mg 1X ONCE 02/07/17 22:30 02/07/17 22:31 DC 02/07/17 21:51 0.5 MG Ondansetron HCl (Zofran) 4 mg 1X ONCE 02/07/17 22:00 02/07/17 22:01 DC 02/07/17 21:50 4 MG Potassium Chloride (Klor-Con) 40 meq 1X ONCE 02/07/17 22:30 02/07/17 22:31 DC 02/07/17 22:31 40 MEQ Sodium Chloride (Iv Sodium Chloride 0.9% 1000ml Bag) 1,000 ml @ 1,000 mls/hr Q1H 02/07/17 22:00 02/07/17 22:59 DC 02/07/17 21:51 1,000 MLS/HR Allergies Allergies Allergies Coded Allergies Type Severity Reaction Last Updated Verified EVELYN Inhibitors Allergy Severe Anaphylaxis 01/27/16 Yes Trimethobenzamide HCl Allergy Intermediate 01/27/16 Yes iodine Allergy Intermediate Hives 01/27/16 Yes metoclopramide HCl Allergy Intermediate "jaw paralysis" 01/27/16 Yes pneumococcal vaccine Allergy Intermediate unknown 01/27/16 Yes temazepam Allergy Intermediate ativan ok 02/07/17 Yes tiagabine Allergy Intermediate causes psychosis 01/27/16 Yes NSAIDS (Non-Steroidal Anti-Inflamma Adverse Reaction Intermediate FLUID RETENTION 01/27/16 Yes immune globulin,horse (equine) Adverse Reaction Intermediate HALLUCINATIONS 01/27/16 Yes Physical Exam Physical Exam Constitutional: Well developed, well nourished, no acute distress, non-toxic appearance. [] HENT: Normocephalic, atraumatic, bilateral external ears normal, oropharynx moist, no oral exudates, nose normal. [] Eyes: PERRLA, EOMI, conjunctiva normal, no discharge. [] Neck: Normal range of motion, no tenderness, supple, no stridor. [] Cardiovascular:Heart rate regular Lungs & Thorax: Bilateral breath sounds clear to auscultation [] Abdomen: Bowel sounds normal, soft, no tenderness, no masses, no pulsatile masses. [] Skin: Warm, dry, no erythema, no rash. [] Back: No tenderness, no CVA tenderness. [] Extremities: No tenderness, no cyanosis, no clubbing, ROM intact, no edema. [] Neurologic: Alert and oriented X 3, normal motor function, normal sensory function, no focal deficits noted. [] Psychologic: Affect normal, judgement normal, mood normal. [] Current Patient Data Vital Signs Vital Signs Date Time Temp Pulse Resp B/P Pulse Ox O2 Delivery O2 Flow Rate FiO2 02/07/17 22:30 110 20 147/85 Room Air 02/07/17 22:05 100 02/07/17 21:08 98.4 98.4 Lab Values Laboratory Tests Test 02/07/17 21:33 White Blood Count 10.3x10^3/uL (4.0-11.0) Red Blood Count 4.15x10^6/uL (3.50-5.40) Hemoglobin 12.4g/dL (12.0-15.5) Hematocrit 37.7% (36.0-47.0) Mean Corpuscular Volume 91fL (79-100) Mean Corpuscular Hemoglobin 30pg (25-35) Mean Corpuscular Hemoglobin Concent 33g/dL (31-37) Red Cell Distribution Width 14.2% (11.5-14.5) Platelet Count 282x10^3/uL (140-400) Neutrophils (%) (Auto) 58% (31-73) Lymphocytes (%) (Auto) 35% (24-48) Monocytes (%) (Auto) 5% (0-9) Eosinophils (%) (Auto) 2% (0-3) Basophils (%) (Auto) 1% (0-3) Neutrophils # (Auto) 6.0x10^3uL (1.8-7.7) Lymphocytes # (Auto) 3.6x10^3/uL (1.0-4.8) Monocytes # (Auto) 0.5x10^3/uL (0.0-1.1) Eosinophils # (Auto) 0.2x10^3/uL (0.0-0.7) Basophils # (Auto) 0.1x10^3/uL (0.0-0.2) Prothrombin Time 12.8SEC (11.7-14.0) Prothrombin Time INR 1.0 (0.8-1.1) D-Dimer (Shabnam) 0.60ug/mlFEU (0.00-0.50) H Sodium Level 140mmol/L (136-145) Potassium Level 2.7mmol/L (3.5-5.1) *L Chloride Level 100mmol/L (98-107) Carbon Dioxide Level 29mmol/L (21-32) Anion Gap 11 (6-14) Blood Urea Nitrogen 10mg/dL (7-20) Creatinine 1.1mg/dL (0.6-1.0) H Estimated GFR (Cockcroft-Gault) 66.6 Glucose Level 134mg/dL (70-99) H Calcium Level 8.9mg/dL (8.5-10.1) Total Bilirubin 0.3mg/dL (0.2-1.0) Direct Bilirubin 0.1mg/dL (0.0-0.2) Aspartate Amino Transferase (AST) 20U/L (15-37) Alanine Aminotransferase (ALT) 23U/L (14-59) Alkaline Phosphatase 86U/L (46-116) Troponin I Quantitative < 0.017ng/mL (0.000-0.055) [id number]-[id number]-Type Natriuretic Peptide 342pg/mL (0-124) H Total Protein 8.1g/dL (6.4-8.2) Albumin 3.5g/dL (3.4-5.0) Thyroid Stimulating Hormone (TSH) 2.137uIU/mL (0.358-3.74) Laboratory Tests 02/07/17 21:33 Laboratory Tests 02/07/17 21:33 EKG EKG [] Radiology/Procedures Radiology/Procedures [] Course & Med Decision Making Course & Med Decision Making Pertinent Labs and Imaging studies reviewed. (See chart for details) [] Dragon Disclaimer Dragon Disclaimer This electronic medical record was generated, in whole or in part, using a voice recognition dictation system. Departure Departure Impression: Primary Impression: Hypokalemia Additional Impressions: Tachycardia Palpitations Disposition: ADMITTED INPATIENT Admitting Physician: Trace Gar Condition: GUARDED Referrals: NO PCP (PCP) Problem Qualifiers MARIELA RODRIGUEZ MD Feb 08, 2017 07:19
--- NOTE | 2017-02-08 08:26 | RAD ---
Portable chest, 02/07/2017: History: Chest pain Comparison is made to a study from 11/28/2016. A left-sided transvenous pacing device remains in place with 2 leads extending into the right heart. Old epicardial pacing leads are again noted. The left ventricle is mildly prominent. The pulmonary vascularity is normal. No pulmonary infiltrates are seen. There is no evidence of pleural fluid. IMPRESSION: No acute cardiopulmonary abnormality is detected.
[2017-02-08] MEDS: IV NORMAL SALINE 1000ML BAG 1,000 ML IV SCH ×2 (08:56→18:56)
[2017-02-08 09:38] LABS: CALCIUM 8.2 mg/dL (8.5-10.1); CREATININE 1.1 mg/dL (0.6-1.0); GFR 66.6; POTASSIUM 3.5 mmol/L (3.5-5.1)
[2017-02-08 09:44] LABS: ALBUMIN 2.9 g/dL (3.4-5.0); ALBUMIN/GLOBULIN RATIO 0.9 (1.0-1.7); TOTAL BILIRUBIN 0.4 mg/dL (0.2-1.0); TOTAL PROTEIN 6.2 g/dL (6.4-8.2)
--- NOTE | 2017-02-08 10:12 | PDOC2 ---
CARDIAC CONSULT DATE OF CONSULT Date of Consult DATE: 02/08/17 TIME: 10:09 REASON FOR CONSULT Reason for Consult: Chest Pain H/o cardiac arrest x2 Tachycardia REFERRING PHYSICIAN Referring Physician: Dr. Munoz SOURCE Source: Chart review, Patient HISTORY OF PRESENT ILLNESS HISTORY OF PRESENT ILLNESS This is a 41 yo female, with a history of pos- cardiomyopathy, who presented with complaints of chest pain and dizziness. Patients reports pain began yesterday afternoon while she was sitting watching television. Located in her central chest and radiates under left breast. Describes as constant, aching , and sharp in nature. Worsened by coughing, taking a deep breath, and with certain movements. Improved with "narcotics". Experienced pain previously and was treated at [facility]. Cannot provide any details of treatment other than she was given "narcotics". Denies any associated palpitations, diaphoresis, SOA , LE edema, or nausea/vomiting. Has experienced occasional dizziness with the pain. Cough present for the last couple of days. Follows closely with Dr. Pablo with [facility]. Has routine appointment scheduled for next week. PAST MEDICAL HISTORY Past Medical History Cardiovascular: AFIB, CHF (systolic ), HTN, Hyperlipidemia, Other (post- CMP; Medtronic ICD - dual chamber; previous [place] C-pulse device implanted and explanted; V-fib) Pulmonary: Asthma, Other (DVT) CENTRAL NERVOUS SYSTEM: CVA (X2; right side affected), Migraine GI: GERD Heme/Onc: No pertinent hx Psych: Anxiety, Depression Musculoskeletal: Other (costochronditis) Rheumatologic: No pertinent hx Infectious disease: No pertinent hx ENT: No pertinent hx Endocrine: Hyperthyroidism (graves disease treated with surgery) Dermatology: No pertinent hx PAST SURGICAL HISTORY Past Surgical History Pacemaker (Medtronic ICD; has had to have leads explanted due to infection), C- Section (X1), Hysterectomy, Other (thyroidectomy) FAMILY HISTORY Family History: Diabetes SOCIAL HISTORY Social History Smoke: No ALCOHOL: rare Drugs: None Lives: with Family CURRENT MEDICATIONS CURRENT MEDICATIONS Current Medications Medications (Trade) Dose Ordered Sig/Patsy Route PRN Reason Start Time Stop Time Status Last Admin Dose Admin Sodium Chloride (Iv Sodium Chloride 0.9% 1000ml Bag) 1,000 ml @ 1,000 mls/hr Q1H IV 02/07/17 22:00 02/07/17 22:59 DC 02/07/17 21:51 Ondansetron HCl (Zofran) 4 mg 1X ONCE IV 02/07/17 22:00 02/07/17 22:01 DC 02/07/17 21:50 Lorazepam (Ativan) 0.5 mg 1X ONCE IV 02/07/17 22:30 02/07/17 22:31 DC 02/07/17 21:51 Potassium Chloride 40 meq 40 meq 1X ONCE PO 02/07/17 22:30 02/07/17 22:31 DC 02/07/17 22:31 Potassium Chloride/Sodium Chloride (KCl 40 Meq-NS 1,000 ml Iv Soln) 1,000 ml @ 75 mls/hr 1X ONCE IV 02/07/17 23:00 02/08/17 12:19 02/07/17 22:55 Morphine Sulfate 4 mg 1X ONCE IV 02/08/17 00:30 02/08/17 00:31 DC 02/08/17 00:15 Morphine Sulfate 2 mg PRN Q2HR PRN IV SEVERE PAIN 02/08/17 02:15 02/08/17 09:22 Nitroglycerin (Nitro-Bid Oint) 1.5 inch Q6HRS TP 02/08/17 02:15 02/08/17 06:30 ALLERGIES ALLERGIES: Coded Allergies: EVELYN Inhibitors (Verified Allergy, Severe, Anaphylaxis, 01/27/16) Trimethobenzamide HCl (Verified Allergy, Intermediate, 01/27/16) iodine (Verified Allergy, Intermediate, Hives, 01/27/16) metoclopramide HCl (Verified Allergy, Intermediate, "jaw paralysis", ) pneumococcal vaccine (Verified Allergy, Intermediate, unknown, 01/27/16) "when she woke up from coma was told she was allergic" temazepam (Verified Allergy, Intermediate, ativan ok, 02/07/17) tiagabine (Verified Allergy, Intermediate, causes psychosis, 01/27/16) NSAIDS (Non-Steroidal Anti-Inflamma (Verified Adverse Reaction, Intermediate, FLUID RETENTION, 01/27/16) immune globulin,horse (equine) (Verified Adverse Reaction, Intermediate, HALLUCINATIONS, 01/27/16) ROS Review of System 14 point ROS conducted with pertinent positives noted above in HPI. PHYSICAL EXAM PHYSICAL EXAM General: Alert, Oriented X3, Cooperative, No acute distress HEENT: Atraumatic Heart: Regular rate, Normal S1, Normal S2, Other (2/6 systolic murmur to LLS border. Central chest tenderness upon palpation) Abdomen: Other (obese) Extremities: No cyanosis, No edema Skin: No breakdown, No significant lesion Neuro: Normal speech, Sensation intact Psych/Mental Status: Mental status NL, Mood NL MUSCULOSKELETAL: Full range of motion without pain VITALS VITALS Vital Signs Date Time Temp Pulse Resp B/P Pulse Ox O2 Delivery O2 Flow Rate FiO2 02/08/17 09:22 99 Nasal Cannula 2.0 02/08/17 07:30 97.9 85 16 100/64 97.9 LABS Lab: Laboratory Tests Test 02/07/17 21:33 02/08/17 09:05 White Blood Count 10.3x10^3/uL (4.0-11.0) Red Blood Count 4.15x10^6/uL (3.50-5.40) Hemoglobin 12.4g/dL (12.0-15.5) Hematocrit 37.7% (36.0-47.0) Mean Corpuscular Volume 91fL (79-100) Mean Corpuscular Hemoglobin 30pg (25-35) Mean Corpuscular Hemoglobin Concent 33g/dL (31-37) Red Cell Distribution Width 14.2% (11.5-14.5) Platelet Count 282x10^3/uL (140-400) Neutrophils (%) (Auto) 58% (31-73) Lymphocytes (%) (Auto) 35% (24-48) Monocytes (%) (Auto) 5% (0-9) Eosinophils (%) (Auto) 2% (0-3) Basophils (%) (Auto) 1% (0-3) Neutrophils # (Auto) 6.0x10^3uL (1.8-7.7) Lymphocytes # (Auto) 3.6x10^3/uL (1.0-4.8) Monocytes # (Auto) 0.5x10^3/uL (0.0-1.1) Eosinophils # (Auto) 0.2x10^3/uL (0.0-0.7) Basophils # (Auto) 0.1x10^3/uL (0.0-0.2) Prothrombin Time 12.8SEC (11.7-14.0) Prothromb Time International Ratio 1.0 (0.8-1.1) D-Dimer (Shabnam) 0.60ug/mlFEU (0.00-0.50) Sodium Level 140mmol/L (136-145) 143mmol/L (136-145) Potassium Level 2.7mmol/L (3.5-5.1) 3.5mmol/L (3.5-5.1) Chloride Level 100mmol/L (98-107) 105mmol/L (98-107) Carbon Dioxide Level 29mmol/L (21-32) 30mmol/L (21-32) Anion Gap 11 (6-14) 8 (6-14) Blood Urea Nitrogen 10mg/dL (7-20) 11mg/dL (7-20) Creatinine 1.1mg/dL (0.6-1.0) 1.1mg/dL (0.6-1.0) Estimated GFR (Cockcroft-Gault) 66.6 66.6 Glucose Level 134mg/dL (70-99) 101mg/dL (70-99) Calcium Level 8.9mg/dL (8.5-10.1) 8.2mg/dL (8.5-10.1) Total Bilirubin 0.3mg/dL (0.2-1.0) 0.4mg/dL (0.2-1.0) Direct Bilirubin 0.1mg/dL (0.0-0.2) Aspartate Amino Transf (AST/SGOT) 20U/L (15-37) 14U/L (15-37) Alanine Aminotransferase (ALT/SGPT) 23U/L (14-59) 19U/L (14-59) Alkaline Phosphatase 86U/L (46-116) 71U/L (46-116) Troponin I Quantitative < 0.017ng/mL (0.000-0.055) < 0.017ng/mL (0.000-0.055) LA-Qbd-S-Type Natriuretic Peptide 342pg/mL (0-124) Total Protein 8.1g/dL (6.4-8.2) 6.2g/dL (6.4-8.2) Albumin 3.5g/dL (3.4-5.0) 2.9g/dL (3.4-5.0) Thyroid Stimulating Hormone (TSH) 2.137uIU/mL (0.358-3.74) BUN/Creatinine Ratio 10 (6-20) Albumin/Globulin Ratio 0.9 (1.0-1.7) ECHOCARDIOGRAM ECHOCARDIOGRAM <Conclusion> The Left Ventricle is moderately dilated. Left ventricle systolic function is severely impaired. The Ejection Fraction is <20%. There is global hypokinesis of the left ventricle. There is a device lead in the right ventricle. There is no significant aortic valvular stenosis. Doppler and Color Flow revealed mild to moderate aortic regurgitation. Doppler and Color-flow revealed mild to moderate mitral regurgitation. Doppler and Color Flow revealed mild tricuspid regurgitation. The PA pressure was estimated at 21 mmHg. DATE: 08/15/16 1341 ASSESSMENT/PLAN ASSESSMENT/PLAN 1. Chest pain, atypical troponin series normal, AMI ruled out. EKG without significant acute changes by comparison. Likely MSK in origin as it is reproducible. Recent echo as below. No further cardiac workup warranted may discharge from a CV perspective and f/u with routine drafter (cad) electrical as previously scheduled. 2. Chronic systolic HF echo 08/15/2016 with EF <20% with global hypokinesis with mild polyvalvular insufficiency CXR without vascular congestion Compensated. Continue optimization therapy 3. Post- CMP Medtronic ICD for prevention of SCD with history of V-fib and cardiac arrest/ code blue no acute events on telemetry Follows with [facility] CHF clinic continue medical management 4. Acquired Hypothyroidism history of Graves disease treated with surgery On replacement. TSH WNL 5. GERD continue home meds 6. HTN Controlled, continue as BP allows Allergic to ACEi 7. HLD LDL= 144 09/13/16 statin therapy diet/lifestyle modification 8. CVA history 9. Depression 10. Obesity Continue with lifestyle modification. BMI 38 11. PAFIB maintaining SR Resume Dig and metoprolol for rate control ASA for stroke prevention- defer further OAC to primary drafter (cad) electrical. 14. Hx of G6PD deficiency Problems: DARIANA WHEELER APRN Feb 08, 2017 10:12
--- NOTE | 2017-02-08 11:02 | ACF ---
Admit Criteria Forms Admit Criteria Forms Admit Criteria Forms HYPONATREMIA; HYPERNATREMIA; HYPOKALEMIA; HYPERKALEMIA; HYPOCALCEMIA; HYPERCALCEMIA Clinical Indications for Inpatient Care (Place 'X' for any and all applicable criteria): Ongoing inpatient care may be indicated for ANY ONE of the following [G](1)(2)(3 )(5): [ ]I. Hyponatremia with ANY ONE of the following: [ ]a) Sodium less than 130 mEq/L (mmol/L) (new) (6)(22) [ ]b) Sodium less than 135 mEq/L (mmol/L) with ANY ONE of the following: [ ]i) Severe medical etiology requiring inpatient management (eg, heart failure, hypovolemia) [ ]ii) Altered mental status [ ]iii) Seizures [ ]II. Hypernatremia with ANY ONE of the following: [ ]a) Sodium greater than 155 mEq/L (mmol/L) [ ]b) Sodium greater than 150 mEq/L (mmol/L) with ANY ONE of the following: [ ] i) Altered mental status [ ]ii) Seizures [ ]iii) Severe medical etiology (eg, hypovolemia, diabetes insipidus) [ ]iv) Severe weakness [ ]v) Severe medical etiology (eg, hemolysis, infection, drug overdose) [X]III. Hypokalemia with ANY ONE of the following: [ ]a) Potassium less than 2.5 mEq/L (mmol/L) despite outpatient and emergency treatment [X]b) Potassium less than 3.0 mEq/L (mmol/L) with ANY ONE of the following: [ ]i) Weakness [ ]ii) Cardiac abnormality (eg, arrhythmia, conduction disturbance) [ ]iii) Cardiac ischemia [ ]iv) Ileus [ ]v) Ongoing medical cause requiring inpatient management. ( e.g., acute renal wasting, SIADH) [X]vi) Other severe symptoms [ ] IV. Hyperkalemia with ANY ONE of the following: [ ]a) Potassium greater than 6.5 mEq/L (mmol/L) [ ]b) Potassium greater than 5 mEq/L (mmol/L) with ANY ONE of the following: [ ]i) Severe ECG findings [H] [ ]ii) Acute worsening of renal failure (creatinine greater than 2.5 mg/dL (221 micromoles/L) or significant elevation for age and size) [ ] V. Hypocalcemia with ANY ONE of the following: [ ]a) Calcium less than 7 mg/dL (1.75 mmol/L) despite outpatient and emergency treatment(19) [ ]b) Calcium less than 8 mg/dL (2 mmol/L) with significant symptoms or findings; examples include: [ ]i) Cardiac abnormality (eg, arrhythmia or conduction disturbance) [ ]ii) Altered mental status [ ]iii) Seizures [ ]iv) Breathing difficulty [ ]v) Muscle spasms [ ]. Hypercalcemia with ANY ONE of the following: [ ]a) Calcium greater than 14 mg/dL (3.5 mmol/L) [ ]b) Calcium greater than 12 mg/dL (3 mmol/L) with ANY ONE of the following: [ ]i) Significant dehydration or hypovolemia as indicated by ANY ONE of the following(2): [ ]1. Clinically significant dehydration as indicated by ANY ONE of the following: [ ]A. Acute loss of weight from baseline (5% of body weight in adults, 9% in pediatric patients) [ ]B. Hemodynamic instability [ ]C. Acute renal failure [ ]D. Serum sodium greater than 150 mEq/L (mmol/L) [ ]2) Dehydration that is persistent indicated by ALL of the following: [ ]A. Oral rehydration therapy not tolerated or insufficient to adequately correct dehydration [ ]B. Appropriate intravenous treatment (eg, fluids ) does not readily correct dehydration ie, after 12 to 24 hours of treatment) [ ]ii) Significant symptoms or findings; examples include: [ ]1) Altered mental status [ ]2) Cardiac abnormality (eg, arrhythmia, conduction disturbance) [ ]3) Cardiac abnormality (eg, arrhythmia, conduction disturbance) The original [facility] content created by [employer] has been revised. The portions of the content which have been revised are identified through the use of italic text or in bold, and [facility] has neither reviewed nor approved the modified material. All other unmodified content is copyright [facility] Please see references footnoted in the original [facility] edition 2015 JUAN ANTONIO CORTES Feb 08, 2017 11:02
[2017-02-08] MEDS: DIGOXIN 125 MCG TABLET. PO SCH (15:52)
[2017-02-08] MEDS: FAMOTIDINE 20 MG TABLET. PO SCH (15:52)
[2017-02-08] MEDS: CLOPIDOGREL BISULFATE 75 MG TABLET PO SCH (15:53)
[2017-02-08] MEDS: LOSARTAN POTASSIUM 25 MG TABLET. PO SCH (15:53)
[2017-02-08] MEDS: POTASSIUM CHLORIDE 20 MEQ TABLET.ER. PO SCH (15:53)
[2017-02-08] MEDS: SPIRONOLACTONE 25 MG TABLET PO SCH (15:54)
[2017-02-08] MEDS: ASPIRIN CHEWABLE 81 MG TABLET. PO SCH (15:54)
[2017-02-08] MEDS: TORSEMIDE 20 MG TABLET. PO SCH (15:54)
[2017-02-08] MEDS: HYDROCODONE/APAP 5/325MG TABLET. PO PRN ×2 (15:54→20:01)
[2017-02-08] MEDS: SUCRALFATE 1 GM TABLET. PO SCH ×2 (17:50→20:00)
--- NOTE | 2017-02-08 19:29 | HP ---
ADMIT DATE: 02/08/2017 CHIEF COMPLAINT: Chest pain. HISTORY OF PRESENT ILLNESS: The patient is a 41-year-old -Mexican woman with significant past medical history of related cardiomyopathy, requiring pacemaker placement in 2006. She presented to the hospital with chest pain. She relates that her symptoms actually started 4 days ago on Saturday afternoon when she actually was not feeling well at home. When she went out to the garage, she actually not only got dizzy, but had an episode of severe nausea, retching. She thinks she blacked out because she found herself lying on the floor. She called back into the house and went to bed. She was not feeling well for the subsequent days, but was able to eat and drink without any problems. No further episodes of nausea, vomiting, denies any diarrhea. Denies any fevers or chills. Because of her symptoms of unwellness and chest tightness and pain, her family urged her to come to the Emergency Room today. She relates that pain is in the middle of her chest radiating in to her left chest below her breast. It is sharp in nature, constant and aching, worse with coughing and taking a deep breath. In the Emergency Room, she stated that "narcotics" seemed to help pass with a previous episode. She denies any diaphoresis, palpitations, shortness of breath with this. PAST MEDICAL HISTORY: CHF, cardiomyopathy, atrial fibrillation status post dual chamber ICD placement in 2006 originally replaced in 2008, asthma, history of DVT also had strokes associated with her cardiac event and also anxiety and depression. She is now hypothyroidism after thyroidectomy for Graves' disease. FAMILY HISTORY: Diabetes, no heart disease. SOCIAL HISTORY: She lives with her 5 children. No toxic habits. ALLERGIES: EVELYN inhibitors, NSAIDs, metoclopramide, temazepam and ____. MEDICATIONS: MAR reconciled with home medications. REVIEW OF SYSTEMS: Positive as per HPI. Rest of organ system review is negative. PHYSICAL EXAMINATION: VITAL SIGNS: From today show a blood pressure of 107/60, heart rate at 80, respiratory rate at 18. She is afebrile. GENERAL: This is a 41-year-old -Mexican woman, morbidly obese, alert and oriented, in no acute distress. HEENT: Shows no scleral icterus. NECK: Supple, without any lymphadenopathy. LUNGS: Clear to auscultation bilaterally. HEART: Regular rate and rhythm. ABDOMEN: Has positive bowel sounds, soft, nontender. EXTREMITIES: Show no edema. SKIN: Warm, soft and dry. LABORATORY DATA: CBC with a WBC of 10.3, hemoglobin 12.4, platelets of 282. Chemistries with a BUN and creatinine of 11 and 1.1, normal electrolytes, glucose at 101. Albumin at 2.9. LFTs within normal. Troponins negative x 3. IMAGING STUDIES: Show a chest x-ray without cardiopulmonary abnormality. ASSESSMENT AND PLAN: The patient is a 41-year-old -Mexican woman with significant heart history and close followup with her security guard supervisor, ____ at [facility]. She actually has an appointment for next week. She now presents with nausea, vomiting and general unwellness and respirophasic chest pain. Although this is suspicious for musculoskeletal pain, potentially a costochondritis or similar injury, can also not rule out stomach and esophageal issues, especially with her history of violent vomiting on Saturday, we will start her on Carafate as well as H2 niranjan QUENTIN. We will switch her IV morphine to [place]. She does have a history of frequent admissions for pain issues and is requesting." narcotics." All her home medications will be continued. She has been evaluated by Cardiology here who feel that this is not Cardiology pain and have signed off. Hopefully, we will be able to get the patient stabilized and discharged to home soon. OLAMIDE WINSTON MD DR: NILSON/nts JOB#: [id number] / [id number] WAYNE
[2017-02-08] MEDS: METOPROLOL SUCC 24HR ER 50 MG TAB.ER.24H. PO SCH (20:06)
[2017-02-08] MEDS ORDERED: ONDANSETRON ODT 4 MG TAB.RAPDIS. PO PRN (20:15)
[2017-02-08] MEDS: PANTOPRAZOLE 40 MG TABLET.DR. PO SCH (20:37)
[2017-02-08] MEDS: MAGNESIUM OXIDE 400 MG TABLET PO SCH (20:38)
[2017-02-08] MEDS ORDERED: SIMVASTATIN 20 MG TABLET PO SCH (21:00)
[2017-02-08] MEDS ORDERED: DIAZEPAM 5 MG TABLET PO SCH (21:00)
[2017-02-08] MEDS ORDERED: traZODone 100 MG TABLET. PO SCH (21:00)
[2017-02-09] VITALS (7 sets, daily range): BP systolic 79–93; BP diastolic 40–63
[2017-02-09] MEDS ORDERED: LEVOTHYROXINE 150 MCG TABLET PO SCH (06:00)
[2017-02-09] MEDS ORDERED: IV NORMAL SALINE 1000ML BAG 500 ML IV ONE (07:45)
[2017-02-09] MEDS: PANTOPRAZOLE 40 MG TABLET.DR. PO SCH ×2 (07:59→17:37)
[2017-02-09] MEDS: SUCRALFATE 1 GM TABLET. PO SCH ×3 (07:59→17:37)
[2017-02-09] MEDS ORDERED: POTASSIUM CHLORIDE 20 MEQ TABLET.ER. PO SCH (08:00)
[2017-02-09] MEDS ORDERED: TORSEMIDE 20 MG TABLET. PO SCH (08:00)
[2017-02-09] MEDS ORDERED: ALBUTEROL SULFATE 2.5 MG/3 ML NEBU. NEB SCH ×2 (08:00→21:00)
[2017-02-09] MEDS: ASPIRIN CHEWABLE 81 MG TABLET. PO SCH (08:55)
[2017-02-09] MEDS: CLOPIDOGREL BISULFATE 75 MG TABLET PO SCH (08:55)
[2017-02-09] MEDS: MAGNESIUM OXIDE 400 MG TABLET PO SCH (08:55)
[2017-02-09] MEDS: FAMOTIDINE 20 MG TABLET. PO SCH (08:56)
[2017-02-09] MEDS: LOSARTAN POTASSIUM 25 MG TABLET. PO SCH (08:56)
[2017-02-09] MEDS: DIGOXIN 125 MCG TABLET. PO SCH (08:56)
[2017-02-09] MEDS: METOPROLOL SUCC 24HR ER 50 MG TAB.ER.24H. PO SCH (08:58)
[2017-02-09] MEDS: SPIRONOLACTONE 25 MG TABLET PO SCH ×2 (08:58→16:00)
[2017-02-09] MEDS ORDERED: POLYETHYLENE GLYCOL 3350 17 GM PACKET. PO SCH (09:00)
[2017-02-09] MEDS ORDERED: ESCITALOPRAM 10 MG TABLET. PO SCH (09:00)
--- NOTE | 2017-02-09 13:15 | PDOC ---
PROGRESS NOTES Chief Complaint Chief Complaint Respirophasic CP ASSESSMENT AND PLAN: 1. Respirophasic pain: improved 2. Bradycardia: new. asymptomatic. improved with 500cc bolus. monitor for now 3. GERD/esophagitis: GI cocktail, PPI bid 4. Dispo: if BP stable later on, plan on D/C Vitals Vitals Vital Signs Date Time Temp Pulse Resp B/P Pulse Ox O2 Delivery O2 Flow Rate FiO2 02/09/17 12:28 68 18 93/63 02/09/17 11:00 98.5 99 Nasal Cannula 2.0 98.5 Physical Exam General: Alert, Oriented X3, Cooperative, No acute distress Heart: Regular rate Lungs: Clear Abdomen: Normal bowel sounds, No tenderness Extremities: No edema Skin: No rashes Review of Systems Review of Systems CP better, but not resolved. not responding to GI meds OLAMIDE WINSTON MD Feb 09, 2017 13:15
[2017-02-09] MEDS ORDERED: HYDR-971 PO (14:43)
[2017-02-09] MEDS: TORSEMIDE 20 MG TABLET. PO SCH (16:00)
[2017-02-09] MEDS: POTASSIUM CHLORIDE 20 MEQ TABLET.ER. PO SCH (17:38)
[2017-02-09] MEDS ORDERED: BUDESONIDE 0.5 MG/2 ML NEBU. NEB SCH (20:30)
--- NOTE | 2017-02-11 03:35 | DS ---
DATE OF DISCHARGE: 02/09/2017 CHIEF COMPLAINT: Respirophasic chest pain. HOSPITAL COURSE: The patient is a 41-year-old -[place] woman with a related CHF who presented with respirophasic chest pain. She related that this started substernally and it spread along the rib margins. She was also found with bradycardia and therefore admitted to the ____ ICU. Acute cardiac syndrome was ruled out with serial enzymes and EKGs. Bradycardia actually improved with a small IV bolus. She was mildly hypotensive during her admission possibly secondary to narcotics she received for her chest pain. Once again, this was responsive to IV fluids and the patient started feeling significantly better and was therefore discharged on the . PHYSICAL EXAMINATION: Please refer to note from 02/09. DISCHARGE DISPOSITION: To home. DISCHARGE CONDITION: Improved. DISCHARGE DIAGNOSES: Chest wall pain, bradycardia. DISCHARGE MEDICATIONS: Please refer to MAR. DISCHARGE INSTRUCTIONS: The patient will follow up with her sales mgr and primary care physician in 1-2 weeks. OLAMIDE WINSTON MD DR: NILSON/nts JOB#: [id number] / [id number]
[2017-02-15] MEDS ORDERED: ERGOCALCIFEROL (VITAMIN D2) 50,000 UNIT CAPSULE. PO SCH (09:00)
== END 2017-02-09 18:30 | disposition home or self-care (01) | DRG 293 ==
LOC: ER 21:02 → 2 NORTH 22:54
PROVIDERS: ADMIT Internal Medicine; ATTEND Internal Medicine
DX: I11.0 Hypertensive heart disease with heart failure (principal); I50.23 Acute on chronic systolic (congestive) heart failure; F41.9 Anxiety disorder, unspecified; F32.9 Major depressive disorder, single episode, unspecified; E03.9 Hypothyroidism, unspecified; E78.5 Hyperlipidemia, unspecified; G43.909 Migraine, unspecified, not intractable, without status migrainosus; I42.9 Cardiomyopathy, unspecified; E66.9 Obesity, unspecified; R00.1 Bradycardia, unspecified; K21.0 Gastro-esophageal reflux disease with esophagitis; I48.0 Paroxysmal atrial fibrillation; Z95.0 Presence of cardiac pacemaker; Z83.3 Family history of diabetes mellitus; Z86.718 Personal history of other venous thrombosis and embolism; Z86.73 Personal history of transient ischemic attack (TIA), and cerebral infarction without residual deficits; Z90.89 Acquired absence of other organs; Z88.8 Allergy status to other drugs, medicaments and biological substances; Z88.6 Allergy status to analgesic agent; Z98.891 History of uterine scar from previous surgery; Z90.710 Acquired absence of both cervix and uterus; Z68.38 Body mass index [BMI] 38.0-38.9, adult
CPT/HCPCS: 36415; 71010; 80048; 80053; 80076; 83880; 84443; 84484; 85027; 85379; 85610; 93005; 94250; 94640; 94760; 96361; 96374; 96375; J2060; J2270; J2405; J3480; J7030; 99285-25

== ENCOUNTER 2017-03-09 14:43 | Inpatient (IN) | payer MEDICARE, OTHER ==
[~2017-03-09] VITALS: Ht 170.2 cm; Wt 115.7 kg
[~2017-03-09 14:43] MED LIST changes: +PANT40TA3 PO; +POLY17PO29 PO; -POLY17PO5 PO
--- NOTE | 2017-03-09 15:28 | PHYS DOC ---
Past Medical History Past Medical History: A-Fib, Asthma, Bronchitis, CHF, CVA, DVT, GERD, Hypothyroid, OH, Migraines, Stroke, Other Additional Past Medical Histor: cardiomyopathy, graves, VFIB Past Surgical History: , Hysterectomy, Pacemaker Additional Past Surgical Histo: defib, C- pulse device, thyroidectomy, cardiac surgery Alcohol Use: None Drug Use: None Adult General Chief Complaint Chief Complaint: CHEST PAIN HPI HPI Patient is a 41 year old F with PMH of CHF with EF of 25% taken off the hrt transplant list at [facility]. Light Armored Reconnaissance Officer Dr. Harris at [facility] sent her to the ER for poss. CHF. Pt has had increasing soa and wt. gain. Pt is on lasix which Dr. Harris increased her dose from 80mg in am and 40mg pm to 80 BID. Pt has hx of DVT and is currently on plavix. Pt has increased SOA with walking and mild chest pain. Pt states her hrt is racing. Pt denies any other SX. PE: Hrt: tachy Lungs: wet B/L Abd: soft NT, BS x4 Ext: no edema ED course: 1515: cardiac workup, EKG, CXR, CTA chest 1515: EKG sinus tach 120 no STEMI 1703: On reevaluation patient having worsening left-sided chest pain with tachycardia. Repeat EKG was ordered and 50 g of fentanyl IV were ordered 1712: Sinus tach 123 no STEMI 1850: Reevaluated the patient and explained that we'll be admitting her to the hospital for further admission and management 1903: discussed CC/HPI/PMH with Dr. Garcia who will admit and wants cardiology consult Findings: 1 view portable chest x-ray NAD Potassium at 2.8 ED medical decision making: After reviewing the chart, CC/HPI/PMH, PE, lab results and radiology results with the patient for continued chest pain. Do not put the patient have any change OH. Since the patient is allergic to IV contrast we'll obtain a VQ scan to further evaluate for possibility of PE since she is having persistent tachycardia. Review of Systems Review of Systems Constitutional: Denies fever or chills [] Eyes: Denies change in visual acuity, redness, or eye pain [] HENT: Denies nasal congestion or sore throat [] Respiratory: SOA Cardiovascular: chest pain GI: Denies abdominal pain, nausea, vomiting, bloody stools or diarrhea [] : Denies dysuria or hematuria [] Musculoskeletal: Denies back pain or joint pain [] Integument: Denies rash or skin lesions [] Current Medications Current Medications Current Medications Medications (Trade) Dose Ordered Sig/Patsy Start Time Stop Time Status Last Admin Dose Admin Fentanyl Citrate (Fentanyl 2ml Vial) 50 mcg 1X ONCE 03/09/17 17:15 03/09/17 17:16 DC 03/09/17 17:11 50 MCG Allergies Allergies Allergies Coded Allergies Type Severity Reaction Last Updated Verified EVELYN Inhibitors Allergy Severe Anaphylaxis 01/27/16 Yes Trimethobenzamide HCl Allergy Intermediate 01/27/16 Yes iodine Allergy Intermediate Hives 01/27/16 Yes metoclopramide HCl Allergy Intermediate "jaw paralysis" 01/27/16 Yes pneumococcal vaccine Allergy Intermediate unknown 01/27/16 Yes temazepam Allergy Intermediate ativan ok 02/07/17 Yes tiagabine Allergy Intermediate causes psychosis 01/27/16 Yes NSAIDS (Non-Steroidal Anti-Inflamma Adverse Reaction Intermediate FLUID RETENTION 01/27/16 Yes immune globulin,horse (equine) Adverse Reaction Intermediate HALLUCINATIONS 01/27/16 Yes Physical Exam Physical Exam Constitutional: Well developed, well nourished, no acute distress, non-toxic appearance. [] HENT: Normocephalic, atraumatic, bilateral external ears normal, oropharynx moist, no oral exudates, nose normal. [] Eyes: PERRLA, EOMI, conjunctiva normal, no discharge. [] Neck: Normal range of motion, no tenderness, supple, no stridor. [] Cardiovascular:tachy regular rhythm, no murmur [] Lungs & Thorax: coarse BS B/L [] Abdomen: Bowel sounds normal, soft, no tenderness, no masses, no pulsatile masses. [] Skin: Warm, dry, no erythema, no rash. [] Back: No tenderness, no CVA tenderness. [] Extremities: No tenderness, no cyanosis, no clubbing, ROM intact, no edema. [] Neurologic: Alert and oriented X 3, normal motor function, normal sensory function, no focal deficits noted. [] Psychologic: Affect normal, judgement normal, mood normal. [] Current Patient Data Vital Signs Vital Signs Date Time Temp Pulse Resp B/P (MAP) Pulse Ox O2 Delivery O2 Flow Rate FiO2 03/09/17 17:30 106 30 120/61 (80) 96 03/09/17 17:11 Room Air 03/09/17 14:51 98.8 98.8 Lab Values Laboratory Tests Test 03/09/17 16:08 White Blood Count 11.1 x10^3/uL (4.0-11.0) H Red Blood Count 4.11 x10^6/uL (3.50-5.40) Hemoglobin 12.6 g/dL (12.0-15.5) Hematocrit 36.9 % (36.0-47.0) Mean Corpuscular Volume 90 fL (79-100) Mean Corpuscular Hemoglobin 31 pg (25-35) Mean Corpuscular Hemoglobin Concent 34 g/dL (31-37) Red Cell Distribution Width 15.3 % (11.5-14.5) H Platelet Count 239 x10^3/uL (140-400) Neutrophils (%) (Auto) 61 % (31-73) Lymphocytes (%) (Auto) 30 % (24-48) Monocytes (%) (Auto) 7 % (0-9) Eosinophils (%) (Auto) 2 % (0-3) Basophils (%) (Auto) 0 % (0-3) Neutrophils # (Auto) 6.7 x10^3uL (1.8-7.7) Lymphocytes # (Auto) 3.3 x10^3/uL (1.0-4.8) Monocytes # (Auto) 0.8 x10^3/uL (0.0-1.1) Eosinophils # (Auto) 0.2 x10^3/uL (0.0-0.7) Basophils # (Auto) 0.0 x10^3/uL (0.0-0.2) Sodium Level 143 mmol/L (136-145) Potassium Level 2.8 mmol/L (3.5-5.1) *L Chloride Level 100 mmol/L (98-107) Carbon Dioxide Level 30 mmol/L (21-32) Anion Gap 13 (6-14) Blood Urea Nitrogen 7 mg/dL (7-20) Creatinine 0.8 mg/dL (0.6-1.0) Estimated GFR (Cockcroft-Gault) 96.1 BUN/Creatinine Ratio 9 (6-20) Glucose Level 72 mg/dL (70-99) Calcium Level 8.7 mg/dL (8.5-10.1) Total Bilirubin 0.4 mg/dL (0.2-1.0) Aspartate Amino Transferase (AST) 22 U/L (15-37) Alanine Aminotransferase (ALT) 23 U/L (14-59) Alkaline Phosphatase 81 U/L (46-116) Troponin I Quantitative < 0.017 ng/mL (0.000-0.055) DL-Yek-X-Type Natriuretic Peptide 408 pg/mL (0-124) H Total Protein 7.1 g/dL (6.4-8.2) Albumin 3.2 g/dL (3.4-5.0) L Albumin/Globulin Ratio 0.8 (1.0-1.7) L Laboratory Tests 03/09/17 16:08 Laboratory Tests 03/09/17 16:08 EKG EKG Sinus tach 120, no STEMI[] Radiology/Procedures Radiology/Procedures One view portable chest x-ray NAD [] Course & Med Decision Making Course & Med Decision Making Pertinent Labs and Imaging studies reviewed. (See chart for details) [] Dragon Disclaimer Dragon Disclaimer This electronic medical record was generated, in whole or in part, using a voice recognition dictation system. Departure Departure Impression: Primary Impression: Chest pain Additional Impressions: CHF (congestive heart failure) Hypokalemia Disposition: ADMITTED INPATIENT Admitting Physician: Scott Garcia Condition: STABLE Referrals: NO PCP (PCP) Problem Qualifiers Primary Impression: Chest pain Chest pain type: unspecified Qualified Codes: R07.9 - Chest pain, unspecified Additional Impressions: CHF (congestive heart failure) Congestive heart failure type: unspecified congestive heart failure type Congestive heart failure chronicity: acute on chronic Qualified Codes: I50.9 - Heart failure, unspecified TIMOTHY CORNEJO DO March 09, 2017 15:28
[2017-03-09 16:34] LABS: BASO % 0 % (0-3); EOS % 2 % (0-3); HEMATOCRIT 36.9 % (36.0-47.0); HEMOGLOBIN 12.6 g/dL (12.0-15.5); LYMPH # 3.3 x10^3/uL (1.0-4.8); LYMPH % 30 % (24-48); MEAN CORPUSCULAR HEMOGLOBIN 31 pg (25-35); MEAN CORPUSCULAR HGB CONC 34 g/dL (31-37); MEAN CORPUSCULAR VOLUME 90 fL (79-100); MONO % 7 % (0-9); NEUT % 61 % (31-73); PLATELET COUNT 239 x10^3/uL (140-400); RED BLOOD COUNT 4.11 x10^6/uL (3.50-5.40); RED CELL DISTRIBUTION WIDTH 15.3 % (11.5-14.5); WHITE BLOOD COUNT 11.1 x10^3/uL (4.0-11.0)
[2017-03-09 16:55] LABS: ALBUMIN 3.2 g/dL (3.4-5.0); ALBUMIN/GLOBULIN RATIO 0.8 (1.0-1.7); CALCIUM 8.7 mg/dL (8.5-10.1); CREATININE 0.8 mg/dL (0.6-1.0); GFR 96.1; TOTAL BILIRUBIN 0.4 mg/dL (0.2-1.0); TOTAL PROTEIN 7.1 g/dL (6.4-8.2)
[2017-03-09 17:05] LABS: POTASSIUM 2.8 mmol/L (3.5-5.1)
[2017-03-09] MEDS ORDERED: fentaNYL PF VIAL 100 MCG/2 ML VIAL IV ONE (17:15)
--- NOTE | 2017-03-09 18:47 | RAD ---
Ventilation-Perfusion Lung Scintigraphy Indication: Shortness of breath Radiopharmaceutical: 16 mCi xenon 133 aerosol by inhalation and 5 mCi Tc-99m MAA I.V. Findings: Comparison chest radiograph from the same date demonstrates no significant consolidation or pleural effusion. There is mild retention of radiotracer on the washout phase images likely due to airway disease.The perfusion images demonstrate uniform and normal distribution of pulmonary perfusion. No mismatch defects are identified. Impression: Very low probability for pulmonary embolism. Electronically signed by: Eriberto Hood (March 09, 2017 18:46:27)
[2017-03-09] MEDS ORDERED: NITROGLYCERIN SUBLINGUAL 0.4 MG BOTTLE OF 25. SL PRN (19:15)
[2017-03-09] MEDS ORDERED: ONDANSETRON PF 4 MG/2 ML VIAL. IV PRN (19:15)
[2017-03-09] MEDS: MORPHINE SULFATE 4 MG/ML DISP.SYRIN. IV PRN ×2 (19:33→23:33)
[2017-03-09] MEDS ORDERED: POTASSIUM CHLORIDE 20MEQ 50 ML IV SCH (19:45)
[2017-03-09 19:50] VITALS: BP 120/83
[2017-03-09] MEDS: POTASSIUM CHLORIDE 10MEQ 100 ML IV SCH ×5 (21:01→23:35)
[2017-03-09 23:29] VITALS: BP 135/83
[2017-03-09 23:45] VITALS: BP 125/86
[2017-03-10] MEDS ORDERED: POTASSIUM CHLORIDE 20 MEQ TABLET.ER. PO ONE (01:00)
[2017-03-10 03:40] VITALS: BP 117/51
[2017-03-10] MEDS: MORPHINE SULFATE 4 MG/ML DISP.SYRIN. IV PRN ×2 (05:48→12:12)
[2017-03-10 07:30] VITALS: BP 115/78
[2017-03-10 07:55] LABS: BASO # 0.1 x10^3/uL (0.0-0.2); BASO % 1 % (0-3); EOS % 2 % (0-3); HEMATOCRIT 35.7 % (36.0-47.0); HEMOGLOBIN 11.8 g/dL (12.0-15.5); LYMPH # 3.6 x10^3/uL (1.0-4.8); LYMPH % 36 % (24-48); MEAN CORPUSCULAR HEMOGLOBIN 30 pg (25-35); MEAN CORPUSCULAR HGB CONC 33 g/dL (31-37); MEAN CORPUSCULAR VOLUME 92 fL (79-100); MONO % 7 % (0-9); NEUT % 55 % (31-73); PLATELET COUNT 219 x10^3/uL (140-400); RED BLOOD COUNT 3.88 x10^6/uL (3.50-5.40); RED CELL DISTRIBUTION WIDTH 15.3 % (11.5-14.5); WHITE BLOOD COUNT 10.1 x10^3/uL (4.0-11.0)
[2017-03-10 08:47] LABS: ALBUMIN 2.8 g/dL (3.4-5.0); ALBUMIN/GLOBULIN RATIO 0.7 (1.0-1.7); CALCIUM 8.5 mg/dL (8.5-10.1); GFR 74.3; TOTAL BILIRUBIN 0.8 mg/dL (0.2-1.0); TOTAL PROTEIN 6.7 g/dL (6.4-8.2)
[2017-03-10 08:48] LABS: POTASSIUM 2.7 mmol/L (3.5-5.1)
--- NOTE | 2017-03-10 08:53 | RAD ---
Examination: Single frontal view of the chest History: History of shortness of breath Comparison: 02/07/2017 Findings: The cardiomediastinal silhouette grossly appears unremarkable. Left-sided cardiac pacer/ICD identified. There is no acute infiltrate or visualized pneumothorax identified. Impression: No acute cardiopulmonary findings.
[2017-03-10] MEDS: POTASSIUM CHLORIDE 20 MEQ TABLET.ER. PO SCH ×4 (09:47→20:27)
[2017-03-10] MEDS: POTASSIUM CHLORIDE 10MEQ 100 ML IV SCH ×4 (09:47→13:00)
--- NOTE | 2017-03-10 10:36 | PDOC ---
Provider Note Provider Note H&P dictated # [id number] MARLON BUITRAGO MD March 10, 2017 10:36
[2017-03-10] MEDS: ASPIRIN ENTERIC COATED 81 MG TABLET.DR. PO SCH (10:52)
[2017-03-10] MEDS: SPIRONOLACTONE 25 MG TABLET PO SCH ×4 (10:52→15:29)
[2017-03-10] MEDS: CLOPIDOGREL BISULFATE 75 MG TABLET PO SCH (10:53)
[2017-03-10] MEDS: DIGOXIN 125 MCG TABLET. PO SCH (10:53)
[2017-03-10] MEDS: METOPROLOL SUCC 24HR ER 25 MG TAB.ER.24H. PO SCH (10:54)
[2017-03-10] MEDS: ESCITALOPRAM 10 MG TABLET. PO SCH (10:54)
[2017-03-10] MEDS: LEVOTHYROXINE 150 MCG TABLET PO SCH (10:55)
[2017-03-10] MEDS: MAGNESIUM OXIDE 400 MG TABLET PO SCH ×2 (10:55→20:27)
[2017-03-10] MEDS: PANTOPRAZOLE 40 MG TABLET.DR. PO SCH ×2 (10:55→15:32)
[2017-03-10 11:33] VITALS: BP 131/88
--- NOTE | 2017-03-10 11:54 | CONS ---
DATE OF CONSULTATION: 03/10/2017 REASON FOR CONSULTATION: Chest pain. HISTORY OF PRESENT ILLNESS: The patient is a 41-year-old woman with past medical history as noted below, who presents to the hospital in the setting of atypical chest pain. She apparently recently was seen by her primary bus or truck garage mechanic at [facility] and was advised to present to the ER for possible fluid removal via IV Lasix. She presented to [facility] instead due to proximity. In speaking with the patient, she reports that over the last 2-3 weeks, she has gained approximately 15 pounds. She had increased abdominal distension and reports sharp pains at rest and with activity. She does not have any significant anginal symptoms, no pressure-like sensation. She reports compliance with her medications and her diet. In the past, she has been recently admitted for similar symptoms in January 2017. She had an echocardiogram in 07/2016, which revealed severe LV systolic dysfunction and in the setting was treated conservatively and had close followup with her primary bus or truck garage mechanic after her last visit. PAST MEDICAL HISTORY: 1. 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 2. History of deep venous thrombosis, but currently not on anticoagulation. 3. History of cerebrovascular accident. 4. History of G6PD deficiency. 5. Chronic systolic and diastolic heart failure. 6. Hyperthyroidism, Graves' disease, status post surgery. 7. History of CVA x 2 with right-sided being affected. 8. History of migraines. 9. History of hypertension, dyslipidemia and paroxysmal atrial fibrillation. FAMILY HISTORY: Notable for diabetes. SOCIAL HISTORY: The patient denies any alcohol, tobacco or illicit drug use. She lives with her family. CURRENT CARDIOVASCULAR MEDICATIONS: 1. Aspirin 81 mg daily. 2. Digoxin 125 mcg daily. 3. Plavix 75 mg daily. 4. Toprol XL 25 mg daily. 5. Spironolactone 50 mg b.i.d. 6. Simvastatin 20 mg daily. 7. Valsartan 40 mg daily. 8. Torsemide 80 mg b.i.d. ALLERGIES: MULTIPLE AGENTS INCLUDING EVELYN INHIBITORS, IODINE, VACCINES AND NSAIDs. REVIEW OF SYSTEMS: Negative for 10 out of 14 systems reviewed, unless otherwise mentioned above in HPI. PHYSICAL EXAMINATION: VITAL SIGNS: Afebrile, 83, 16, 115/78, 95% on 2 liters. GENERAL: She is alert and oriented, in no acute distress. HEAD AND NECK: Unremarkable. CARDIAC: Regular rate and rhythm without any significant murmurs, rubs, gallops. LUNGS: Clear to auscultation bilaterally. ABDOMEN: Obese, nontender, nondistended with distant bowel sounds. EXTREMITIES: No clubbing, cyanosis or edema. 2+ radial and dorsalis pedis pulses. MUSCULOSKELETAL: No trauma. NEUROLOGIC: No focal deficits. DIAGNOSTIC TESTING: Hemoglobin 11.8, platelets 219, creatinine 1.0, potassium 2.7, cardiac enzymes negative x 2, NT proBNP 408, and in her previous admission for the last 6 months, she has been in this range. Comprehensive metabolic panel including ALT and AST did not reveal any significant pathology except for the hypokalemia as noted above. Chest x-ray and pulmonary perfusion imaging does not reveal any evidence of significant pathology. Prior echocardiogram as stated above in 07/2016 revealed LV systolic function of less than 20% with global hypokinesis. IMPRESSION: 1. Atypical chest pain, likely musculoskeletal in nature related to her chronic musculoskeletal pain. 2. Weight gain with suggestion of possible acute decompensation of her chronic systolic heart failure. 3. Hypertension. 4. Prior history of DVT and CVA on aspirin and Plavix. 5. Paroxysmal atrial fibrillation, currently in sinus rhythm. RECOMMENDATIONS: 1. At this present time, based on physical examination and objective testing, the patient appears to be euvolemic, but she does complains objectively of abdominal distension and weight gain. 2. In this setting, given incongruence between her symptoms and objective findings, we will pursue a right heart catheterization for further delineation of her intracoronary pressures and adjust her diuretic doses as necessary to achieve euvolemia. Otherwise, continue all medications at this time with repletion of potassium. Thank you for this consultation. MARK LLOYD MD DR: JACQUELINE/theresa JOB#: [id number] / [id number] WAYNE
[2017-03-10] MEDS: BUDESONIDE 0.5 MG/2 ML NEBU. NEB SCH ×2 (12:15→19:46)
--- NOTE | 2017-03-10 12:50 | EKG ---
[facility] [address] [place] [address] Test Date: 2017-03-09 Test Time: 14:51:38 Pat Name: IVA UNGER Department: Room: 209 1 Gender: F Dynamics Ax Technical Architect: : [id number] Requested By: TIMOTHY CORNEJO Order Number: [id number] Reading MD: Mars Ramon Measurements Intervals [place] Rate: 120 P: -52 SC: 144 QRS: -24 QRSD: 104 T: 73 QT: 354 QTc: 506 Interpretive Statements SINUS TACHYCARDIA LAD NON-SPECIFIC ST/T CHANGES Electronically Signed On 03-11-2017 15:02:44 CDT by Mars Ramon
--- NOTE | 2017-03-10 12:51 | EKG ---
[facility] [address] [place] [address] Test Date: 2017-03-09 Test Time: 17:03:22 Pat Name: IVA UNGER Department: Room: 209 1 Gender: F Calender Let Off Helper: : [id number] Requested By: TIMOTHY CORNEJO Order Number: [id number] Reading MD: Mars Ramon Measurements Intervals [place] Rate: 123 P: -126 CO: 126 QRS: -25 QRSD: 98 T: 67 QT: 354 QTc: 513 Interpretive Statements SUPRAVENTRICULAR RHYTHM LEFT ATRIAL ABNORMALITY LEFTWARD AXIS CONSIDER LEFT VENTRICULAR HYPERTROPHY QRS(T) CONTOUR ABNORMALITY CONSIDER ANTEROSEPTAL MYOCARDIAL DAMAGE CONSISTENT WITH INFERIOR INFARCT PROBABLY OLD Electronically Signed On 03-12-2017 9:51:18 CDT by Mars Ramon
[2017-03-10 15:00] VITALS: BP_SYST 103; BP_SYST 114; BP_DIAS 60; BP_DIAS 88
--- NOTE | 2017-03-10 16:00 | HP ---
ADMIT DATE: 03/09/2017 ADMISSION DIAGNOSIS: Chest pain. HISTORY OF PRESENT ILLNESS: This is a 41-year-old female with a longstanding history of cardiomyopathy, who has been followed by Cardiology at [facility]. She sees ____. She has been communicating with them by phone and had her Lasix dose increased to 80 mg from 40 mg and then 80 mg b.i.d. She developed progressive shortness of breath that did not improve with diuresis and some chest pain and felt like her heart was racing and presented to the Emergency Room, hoping to get an IV dose of Lasix and then go home, but was subsequently admitted for further evaluation. She has had some abdominal bloating and vague abdominal pain also. PAST MEDICAL HISTORY: Extensive and includes severe cardiomyopathy that has had her on the transplant list previously. She has atrial fib, asthma, chronic diastolic heart failure, prior stroke, prior DVT, GERD, hypothyroidism, [place], migraines, and Graves' disease. PAST SURGICAL HISTORY: Include a and hysterectomy, but she still has her ovaries. She has had a pacemaker placed. She has had defibrillator placed. She still has some devices in her chest from a prior balloon pump pulse device. She has had a thyroidectomy and cardiac surgery. ALLERGIES: SHE HAS HAD ADVERSE OR ALLERGIES TO ACEs, NSAIDs, TRIMETHOBENZAMIDE, IMMUNOGLOBULIN HORSE, IODINE METOCLOPRAMIDE, TEMAZEPAM, TIAGABINE, AND PNEUMOCOCCAL VACCINE. HOME MEDICATIONS: Include albuterol inhaled b.i.d., aspirin 81 mg daily, QVAR 80 mcg daily, clopidogrel 75 mg daily, Valium 5 mg at bedtime, digoxin 125 mcg daily, vitamin D3 50,000 units every 2 weeks, Lexapro 20 mg daily, hydrocodone/APAP 5/325 mg t.i.d. p.r.n., levothyroxine 150 mcg daily, Mag-Ox 400 mg b.i.d., metoprolol 50 mg b.i.d., Zofran 4 mg q. 6h. p.r.n. nausea and vomiting, Protonix 40 mg b.i.d., MiraLax 17 grams daily, potassium chloride 40 mEq daily, simvastatin 20 mg at bedtime, spironolactone 50 mg b.i.d., torsemide 20 mg 4 daily, trazodone 100 mg daily, and valsartan 40 mg daily. FAMILY HISTORY: Diabetes. SOCIAL HISTORY: She does not smoke. REVIEW OF SYSTEMS: CONSTITUTIONAL: No fever or chills. HEENT: No change in her vision, hearing, or taste. No sore throat. CARDIAC: As above. PULMONARY: As above. She uses 2 liters of oxygen at home. GASTROINTESTINAL: She has had a history of Clostridium difficile. She has had some vague abdominal discomfort and bloating sensation. Her bowels have been regular and formed without change. GENITOURINARY: She has been urinating well, particularly with her diuretics. No dysuria. No blood in her urine. EXTREMITIES: History of DVT and she has had a little bit of swelling in her legs, but not more than usual. MUSCULOSKELETAL: No acute joint pains. No gout symptoms. ENDOCRINE: No thyroid symptoms. NEUROLOGIC: No seizures or headaches. PSYCHIATRIC: No depression. PHYSICAL EXAMINATION: VITAL SIGNS: She has been afebrile since admission. Pulse is in the 80s to 90s. Blood pressure is controlled. She has been on 2 liters nasal cannula, and oxygen with saturations 95%-98%. GENERAL: She does not appear to be in a significant amount of distress. She is lying comfortably in bed on her side. Nasal cannula oxygen is on. Currently, does not have an IV. She has potassium replacement fluid waiting to infuse. HEART: Rate is controlled. LUNGS: Clear. I do not hear any crackles. No JVD is noted. No S3 or S4 is heard. ABDOMEN: Mildly distended, it is obese. No particular masses are noted. Bowel sounds are present. EXTREMITIES: Show normal strength and tone. Compression socks on her lower extremities. Mood is normal. Affect is normal. LABORATORY DATA: Her white count initially was 11.1, it is down to 10.1, hemoglobin has dropped from 12.6-11.8. Platelets are normal. Differentials is unremarkable. Chemistries, her potassium is still low at 2.7. Other electrolytes are normal. BUN and creatinine are normal. EGFR is 73%, glucose is 103, and magnesium is low at 1.6. Liver function tests are unremarkable with the exception of her albumin being low at 2.7, calcium is 8.5. ProBNP was 408, which is not particularly elevated, and troponins are normal. IMAGING STUDIES: Her chest x-ray showed no acute findings. Her left-sided cardiac pacer ICD is present. Pulmonary perfusion imaging has very low probability for PE. ASSESSMENT: 1. Eulay-gh-lwpiiia systolic-diastolic heart failure with known cardiomyopathy. 2. Atrial fibrillation, rate-controlled. 3. Hypertension. 4. History of deep venous thrombosis. 5. History of asthma. 6. Chronic respiratory failure with oxygen at home. 7. Gastroesophageal reflux disease. 8. Abdominal pain and bloating. 9. Hypothyroidism. 10. History of Clostridium difficile. PLAN: She is admitted. Her presentation and lab studies do not make for an easy interpretation of what is going on cardiac-shaikh, so Dr. Ramon has seen her in cardiac consultation. A right heart catheterization is planned. She is agreeable. Her electrolytes will be replaced, TSH checked, lipids checked. Appropriate diuresis. W Ayla BUITRAGO MD DR: HALI/theresa JOB#: [id number] / [id number]
[2017-03-10] MEDS: ALBUTEROL SULFATE 2.5 MG/3 ML NEBU. NEB PRN (19:46)
[2017-03-10 19:50] VITALS: BP 110/41
[2017-03-10] MEDS: SIMVASTATIN 20 MG TABLET PO SCH (20:27)
[2017-03-10] MEDS: diazePAM 5 MG TABLET PO SCH (20:28)
[2017-03-10] MEDS: traZODone 100 MG TABLET. PO SCH (20:28)
[2017-03-10] MEDS: HYDROcodone/APAP 5/325MG 1 TAB TABLET PO PRN (20:28)
[2017-03-10] MEDS ORDERED: SIMVASTATIN 20 MG TABLET PO SCH (21:00)
[2017-03-10 23:10] VITALS: BP 106/62
[2017-03-11] VITALS (11 sets, daily range): BP systolic 93–115; BP diastolic 53–78
[2017-03-11] MEDS: LEVOTHYROXINE 150 MCG TABLET PO SCH ×2 (05:04→08:14)
[2017-03-11 05:50] LABS: CHOLESTEROL/HDL RATIO 6.2
[2017-03-11] MEDS: HYDROcodone/APAP 5/325MG 1 TAB TABLET PO PRN ×3 (06:36→17:25)
--- NOTE | 2017-03-11 07:40 | RAD ---
Limited abdominal ultrasound, 03/10/2017: History: Bloating, check for ascites The limited exam of the abdomen demonstrates no ascites.
[2017-03-11] MEDS: ALBUTEROL SULFATE 2.5 MG/3 ML NEBU. NEB PRN (08:06)
[2017-03-11] MEDS: BUDESONIDE 0.5 MG/2 ML NEBU. NEB SCH ×2 (08:06→19:38)
[2017-03-11] MEDS: CLOPIDOGREL BISULFATE 75 MG TABLET PO SCH (08:14)
[2017-03-11] MEDS: PANTOPRAZOLE 40 MG TABLET.DR. PO SCH ×2 (08:14→17:26)
[2017-03-11] MEDS: ASPIRIN ENTERIC COATED 81 MG TABLET.DR. PO SCH (08:14)
[2017-03-11] MEDS: ESCITALOPRAM 10 MG TABLET. PO SCH (08:14)
[2017-03-11] MEDS: DIGOXIN 125 MCG TABLET. PO SCH (08:15)
[2017-03-11] MEDS: MAGNESIUM OXIDE 400 MG TABLET PO SCH ×2 (08:16→21:06)
[2017-03-11] MEDS: METOPROLOL SUCC 24HR ER 25 MG TAB.ER.24H. PO SCH (08:16)
[2017-03-11] MEDS: POTASSIUM CHLORIDE 20 MEQ TABLET.ER. PO SCH ×4 (09:43→21:06)
[2017-03-11] MEDS: SPIRONOLACTONE 25 MG TABLET PO SCH ×2 (09:44→17:26)
--- NOTE | 2017-03-11 13:30 | PDOC ---
PROGRESS NOTES Subjective Subjective Patient reports chest pain and breathing are about the same as at admission. Denies missing doses of her Levothyroxine at home. Objective Objective Vital Signs Date Time Temp Pulse Resp B/P (MAP) Pulse Ox O2 Delivery O2 Flow Rate FiO2 03/11/17 12:23 18 96 Room Air 03/11/17 11:08 98.2 65 108/62 (77) 98.2 03/11/17 03:25 2.0 Intake and Output 03/11/17 07:00 Intake Total 880 ml Output Total 1100 ml Balance -220 ml Intake Oral 480 ml IV Total 400 ml Output Urine Total 1100 ml # Voids 1 Physical Exam Abdomen: Normal bowel sounds, Soft, No tenderness Heart: Regular rate Extremities: No edema General: Alert, Oriented X3, No acute distress Lungs: Other (BS decreased throughout but otherwise CTA) Assessment Assessment Problems Medical Problems: (1) Chest pain Status: Acute (2) CHF (congestive heart failure) Status: Acute (3) Hypokalemia Status: Acute Plan Plan of Care 1. Acute on chronic CHF with severe cardiomyopathy - stable, not much diuresis on chart. Having heart cath today for further evaluation, continue tx as per Cardiology. 2. hypothyroidism - TSH quite elevated, will check T4 and increase Levothyroxine. 3. hypokalemia - improving, replacing po, lab ordered for AM. 4. chest pain - musculoskeletal vs cardiac - stable, po meds available. 5. asthma with nocturnal hypoxia - stable, continue inhalers and O2 at HS. Patient is not hypoxic at rest during the day. Comment Review of Relevant I have reviewed the following items giovanni (where applicable) has been applied. Labs Laboratory Tests Test 03/09/17 16:08 03/10/17 06:55 03/10/17 07:00 03/10/17 07:10 White Blood Count 11.1 x10^3/uL (4.0-11.0) 10.1 x10^3/uL (4.0-11.0) Red Blood Count 4.11 x10^6/uL (3.50-5.40) 3.88 x10^6/uL (3.50-5.40) Hemoglobin 12.6 g/dL (12.0-15.5) 11.8 g/dL (12.0-15.5) Hematocrit 36.9 % (36.0-47.0) 35.7 % (36.0-47.0) Mean Corpuscular Volume 90 fL (79-100) 92 fL (79-100) Mean Corpuscular Hemoglobin 31 pg (25-35) 30 pg (25-35) Mean Corpuscular Hemoglobin Concent 34 g/dL (31-37) 33 g/dL (31-37) Red Cell Distribution Width 15.3 % (11.5-14.5) 15.3 % (11.5-14.5) Platelet Count 239 x10^3/uL (140-400) 219 x10^3/uL (140-400) Neutrophils (%) (Auto) 61 % (31-73) 55 % (31-73) Lymphocytes (%) (Auto) 30 % (24-48) 36 % (24-48) Monocytes (%) (Auto) 7 % (0-9) 7 % (0-9) Eosinophils (%) (Auto) 2 % (0-3) 2 % (0-3) Basophils (%) (Auto) 0 % (0-3) 1 % (0-3) Neutrophils # (Auto) 6.7 x10^3uL (1.8-7.7) 5.5 x10^3uL (1.8-7.7) Lymphocytes # (Auto) 3.3 x10^3/uL (1.0-4.8) 3.6 x10^3/uL (1.0-4.8) Monocytes # (Auto) 0.8 x10^3/uL (0.0-1.1) 0.7 x10^3/uL (0.0-1.1) Eosinophils # (Auto) 0.2 x10^3/uL (0.0-0.7) 0.2 x10^3/uL (0.0-0.7) Basophils # (Auto) 0.0 x10^3/uL (0.0-0.2) 0.1 x10^3/uL (0.0-0.2) Sodium Level 143 mmol/L (136-145) 140 mmol/L (136-145) Potassium Level 2.8 mmol/L (3.5-5.1) 2.7 mmol/L (3.5-5.1) Chloride Level 100 mmol/L (98-107) 98 mmol/L (98-107) Carbon Dioxide Level 30 mmol/L (21-32) 33 mmol/L (21-32) Anion Gap 13 (6-14) 9 (6-14) Blood Urea Nitrogen 7 mg/dL (7-20) 10 mg/dL (7-20) Creatinine 0.8 mg/dL (0.6-1.0) 1.0 mg/dL (0.6-1.0) Estimated GFR (Cockcroft-Gault) 96.1 74.3 BUN/Creatinine Ratio 9 (6-20) 10 (6-20) Glucose Level 72 mg/dL (70-99) 103 mg/dL (70-99) Calcium Level 8.7 mg/dL (8.5-10.1) 8.5 mg/dL (8.5-10.1) Total Bilirubin 0.4 mg/dL (0.2-1.0) 0.8 mg/dL (0.2-1.0) Aspartate Amino Transf (AST/SGOT) 22 U/L (15-37) 22 U/L (15-37) Alanine Aminotransferase (ALT/SGPT) 23 U/L (14-59) 16 U/L (14-59) Alkaline Phosphatase 81 U/L (46-116) 72 U/L (46-116) Troponin I Quantitative < 0.017 ng/mL (0.000-0.055) < 0.017 ng/mL (0.000-0.055) TV-Fjt-P-Type Natriuretic Peptide 408 pg/mL (0-124) Total Protein 7.1 g/dL (6.4-8.2) 6.7 g/dL (6.4-8.2) Albumin 3.2 g/dL (3.4-5.0) 2.8 g/dL (3.4-5.0) Albumin/Globulin Ratio 0.8 (1.0-1.7) 0.7 (1.0-1.7) Magnesium Level 1.6 mg/dL (1.8-2.4) Thyroid Stimulating Hormone (TSH) 18.154 uIU/mL (0.358-3.74) Test 03/11/17 04:53 Potassium Level 3.2 mmol/L (3.5-5.1) Magnesium Level 2.0 mg/dL (1.8-2.4) Triglycerides Level 109 mg/dL (0-150) Cholesterol Level 235 mg/dL (0-200) LDL Cholesterol, Calculated 175 mg/dL (0-100) VLDL Cholesterol, Calculated 22 mg/dL (0-40) Non-HDL Cholesterol Calculated 197 mg/dL (0-129) HDL Cholesterol 38 mg/dL (40-60) Cholesterol/HDL Ratio 6.2 Laboratory Tests Test 03/11/17 04:53 Potassium Level 3.2 mmol/L (3.5-5.1) Magnesium Level 2.0 mg/dL (1.8-2.4) Triglycerides Level 109 mg/dL (0-150) Cholesterol Level 235 mg/dL (0-200) LDL Cholesterol, Calculated 175 mg/dL (0-100) VLDL Cholesterol, Calculated 22 mg/dL (0-40) Non-HDL Cholesterol Calculated 197 mg/dL (0-129) HDL Cholesterol 38 mg/dL (40-60) Cholesterol/HDL Ratio 6.2 Medications Current Medications Fentanyl Citrate (Fentanyl 2ml Vial) 50 mcg 1X ONCE IV Last administered on 17:11; Start 03/09/17 at 17:15; Stop 03/09/17 at 17:16; Status DC Ondansetron HCl (Zofran) 4 mg PRN Q8HRS PRN IV NAUSEA/VOMITING Last administered on 03/10/17 13:02; Start 03/09/17 at 19:15; Stop 03/10/17 at 19:14 ; Status DC Morphine Sulfate 4 mg PRN Q2HR PRN IV PAIN Last administered on 03/10/17 12:12 ; Start 03/09/17 at 19:15; Stop 03/10/17 at 19:14; Status DC Nitroglycerin (Nitrostat) 0.4 mg PRN Q5MIN PRN SL CHEST PAIN; Start 03/09/17 at 19:15; Stop 03/10/17 at 19:14; Status DC Potassium Chloride 50 ml @ 50 mls/hr Q1H IV ; Start 03/09/17 at 19:45; Stop at 21:44; Status UNV Potassium Chloride 100 ml @ 100 mls/hr Q1H IV Last administered on 03/09/17 22:29; Start 03/09/17 at 20:00; Stop 03/09/17 at 23:59; Status DC Potassium Chloride (Klor-Con) 20 meq 1X ONCE PO Last administered on 00:54; Start 03/10/17 at 01:00; Stop 03/10/17 at 01:01; Status DC Potassium Chloride (Klor-Con) 20 meq QID PO Last administered on 03/11/17 09: 43; Start 03/10/17 at 09:00 Potassium Chloride 100 ml @ 100 mls/hr Q1H IV Last administered on 03/10/17 13:00; Start 03/10/17 at 10:00; Stop 03/10/17 at 13:59; Status DC Aspirin (Ecotrin) 81 mg DAILYWBKFT PO Last administered on 03/11/17 08:14; Start 03/10/17 at 10:00 Clopidogrel Bisulfate (Plavix) 75 mg DAILYWBKFT PO Last administered on 08:14; Start 03/10/17 at 10:00 Metoprolol Succinate (Toprol Xl) 25 mg DAILY PO Last administered on 03/11/17 08:16; Start 03/10/17 at 10:00 Digoxin (Lanoxin) 125 mcg DAILY PO Last administered on 03/11/17 08:15; Start 03/10/17 at 10:00 Simvastatin (Zocor) 20 mg HS PO Last administered on 03/10/17 20:27; Start at 21:00 Spironolactone (Aldactone) 50 mg BID92 PO Last administered on 03/10/17 10:52 ; Start 03/10/17 at 10:00; Stop 03/11/17 at 07:42; Status DC Diazepam (Valium) 5 mg HS PO Last administered on 03/10/17 20:28; Start at 21:00 Escitalopram Oxalate (Lexapro) 20 mg DAILY PO Last administered on 03/11/17 08 :14; Start 03/10/17 at 11:00 Levothyroxine Sodium (Synthroid) 150 mcg DAILY06 PO Last administered on 08:14; Start 03/10/17 at 11:00 Pantoprazole Sodium (Protonix) 40 mg BIDAC PO Last administered on 03/11/17 08 :14; Start 03/10/17 at 11:00 Simvastatin (Zocor) 20 mg HS PO ; Start 03/10/17 at 21:00; Status UNV Trazodone HCl (Desyrel) 100 mg HS PO Last administered on 03/10/17 20:28; Start 03/10/17 at 21:00 Budesonide (Pulmicort) 0.5 mg RTBID NEB Last administered on 03/11/17 08:06; Start 03/10/17 at 11:00 Magnesium Oxide (Magnesium Oxide) 400 mg BID PO Last administered on 03/11/17 08:16; Start 03/10/17 at 11:00 Spironolactone (Aldactone) 50 mg BID94 PO Last administered on 03/11/17 09:44 ; Start 03/10/17 at 11:00 Albuterol Sulfate (Ventolin Neb Soln) 2.5 mg PRN Q6HRS PRN NEB SHORTNESS OF BREATH Last administered on 03/11/17 08:06; Start 03/10/17 at 10:30 Acetaminophen/ Hydrocodone Bitart (Lortab 5/325) 1 tab PRN Q4HRS PRN PO PAIN Last administered on 03/11/17 06:36; Start 03/10/17 at 17:45 Acetaminophen/ Hydrocodone Bitart (Lortab 5/325) 2 tab PRN Q4HRS PRN PO PAIN Last administered on 03/11/17 12:23; Start 03/10/17 at 17:45 Active Scripts Active [place] 5-325 Tablet (Acetaminophen/Hydrocodone Bitart) 1 Each Tablet 1 Tab PO TID Reported Protonix (Pantoprazole Sodium) 40 Mg Tablet.dr 1 Tab PO BID Valsartan 40 Mg Tablet 40 Mg PO DAILY Ventolin Hfa Inhaler (Albuterol Sulfate) 18 Gm Hfa.aer.ad BID Metoprolol Succinate 50 Mg Tab.er.24h 50 Mg PO BID Torsemide 20 Mg Tablet 2 Tab PO DAILY16 Torsemide 20 Mg Tablet 4 Tab PO DAILY08 Clopidogrel (Clopidogrel Bisulfate) 75 Mg Tablet 1 Tab PO DAILY Zofran Odt (Ondansetron) 4 Mg Tab.rapdis 4 Mg PO PRN Q6HRS PRN Potassium Chloride 20 Meq Tablet.er 20 Meq PO DAILYBFRSUP Potassium Chloride 20 Meq Tablet.er 40 Meq PO DAILY08 Ergocalciferol (Vitamin D2) 50,000 Unit Capsule 50,000 Unit PO Q2WKS take twice monthly Qvar 40MCG Inhaler (Beclomethasone Dipropionate) 8.7 Gm Aer.w.adap 80 Mcg IH DAILY Magnesium (Magnesium Oxide) 400 Mg Capsule 400 Mg PO BID Digoxin 125 Mcg Tablet 125 Mcg PO DAILY Simvastatin 20 Mg Tablet 20 Mg PO HS Aspirin 81 Mg Tab.chew 81 Mg PO DAILY Trazodone Hcl 100 Mg Tablet 100 Mg PO HS Valium (Diazepam) 5 Mg Tablet 5 Mg PO HS Lexapro (Escitalopram Oxalate) 10 Mg Tablet 20 Mg PO DAILY Miralax (Polyethylene Glycol 3350) 17 Gm Powd.pack 17 Gm PO DAILY Spironolactone 50 Mg Tablet 50 Mg PO BID94 Levothyroxine Sodium 150 Mcg Tablet 150 Mcg PO DAILY06 Vitals/I & O Vital Sign - Last 24 Hours 03/10/17 03/10/17 03/10/17 03/10/17 15:00 19:48 19:50 20:00 Temp 97.9 98.1 97.9 98.1 Pulse 87 68 Resp 18 20 B/P (MAP) 114/88 (97) 110/41 (64) Pulse Ox 98 100 99 O2 Delivery Nasal Cannula Room Air Room Air Room Air O2 Flow Rate 2.0 03/10/17 03/11/17 03/11/17 03/11/17 23:10 03:25 07:00 07:40 Temp 97.8 97.9 97.7 97.8 97.9 97.7 Pulse 68 72 63 Resp 18 17 18 B/P (MAP) 106/62 (77) 106/72 (83) 115/78 (90) Pulse Ox 99 100 98 97 O2 Delivery Room Air Nasal Cannula Room Air O2 Flow Rate 2.0 03/11/17 03/11/17 03/11/17 03/11/17 08:08 08:08 08:15 08:15 Pulse 72 B/P (MAP) 106/72 Pulse Ox 99 99 O2 Delivery Room Air Room Air Room Air 03/11/17 03/11/17 03/11/17 08:16 11:08 12:23 Temp 98.2 98.2 Pulse 74 65 Resp 17 18 B/P (MAP) 106/72 108/62 (77) Pulse Ox 96 96 O2 Delivery Room Air Room Air Intake and Output 03/10/17 03/10/17 03/11/17 15:00 23:00 07:00 Intake Total 300 ml 100 ml 480 ml Output Total 200 ml 900 ml Balance 100 ml -800 ml 480 ml RUSS YOUNGBLOOD MD March 11, 2017 13:30
[2017-03-11] MEDS ORDERED: LIDOCAINE 2% 20 ML VIAL. ONE (13:36)
[2017-03-11] MEDS ORDERED: IOHEXOL 300 MG/ML 100ML VIAL. ONE (13:36)
[2017-03-11] MEDS ORDERED: FAMOTIDINE 20 MG/2 ML VIAL ONE (13:39)
[2017-03-11] MEDS ORDERED: MIDAZOLAM HCL/PF 2 MG/2 ML VIAL. ONE (13:39)
[2017-03-11] MEDS ORDERED: methylPREDNISolone SOD SUCC PF 125 MG/2 ML VIAL. ONE (13:39)
[2017-03-11] MEDS ORDERED: diphenhydrAMINE 50 MG/ML VIAL ONE (13:39)
[2017-03-11] MEDS ORDERED: fentaNYL PF VIAL 100 MCG/2 ML VIAL ONE (13:39)
[2017-03-11] MEDS ORDERED: fentaNYL PF VIAL 100 MCG/2 ML VIAL IV ONE (14:00)
[2017-03-11] MEDS ORDERED: MIDAZOLAM HCL/PF 2 MG/2 ML VIAL. IV ONE (14:00)
[2017-03-11] MEDS ORDERED: LIDOCAINE 2% 20 ML VIAL. IJ ONE (14:00)
--- NOTE | 2017-03-11 14:51 | CARD ---
APPROVED REPORT Procedure(s) performed: RIGHT HEART CATH HISTORY The patient is a 41 year-old female with a history of : previous CHF, hypertension, dyslipidemia. INDICATION The indication(s) include : chest pain, peripheral edema, dyspnea. PROCEDURE NARRATIVE After appropriate informed consent, the patient was brought to the cardiac cath lab technologist for a RHC. The right groi n was prepped and draped in usual sterile fashion. Under 2% lidocaine local anesthesia, a 8Fr sheath was placed in the RCFV. Next, a PA catheter was advanced through the right heart chambers and pressur es and saturations were obtained. Cardiac outputs were performed and the swan was withdrawn. The cody th was removed via manual compression and there were no acute complications. Hemodynamics: RA: 12 mm Hg. RV: 40/114 PA: 40/14 PCWP: 18 CO: 3.5 L/min, CI: 1.5 PA sat: 55% Conclusion 1. Mildly elevated biventricular filling pressures (Not significantly out of proportion to the known cardiomyopathy, likely minimally elevated from baseline) 2. Low cardiac output. 3. No significant pulmonary hypertension. Recommendations Aggressive Medical Therapy
[2017-03-11] MEDS ORDERED: LIDO:MAALOX:DONNATAL 1:1:1 15 ML SINGLE DOSE SWSW ONE (18:45)
[2017-03-11] MEDS: SIMVASTATIN 20 MG TABLET PO SCH (21:05)
[2017-03-11] MEDS: traZODone 100 MG TABLET. PO SCH (21:06)
[2017-03-11] MEDS: diazePAM 5 MG TABLET PO SCH (21:06)
[2017-03-11] MEDS: oxyCODONE/APAP 10/325 1 TAB TABLET PO PRN (21:07)
[2017-03-12] MEDS: oxyCODONE/APAP 10/325 1 TAB TABLET PO PRN ×2 (03:24→09:04)
[2017-03-12 03:51] LABS: CALCIUM 8.6 mg/dL (8.5-10.1); CREATININE 1.1 mg/dL (0.6-1.0); GFR 66.6; POTASSIUM 3.7 mmol/L (3.5-5.1)
[2017-03-12] MEDS: PANTOPRAZOLE 40 MG TABLET.DR. PO SCH (06:17)
[2017-03-12] MEDS ORDERED: LEVOTHYROXINE 175 MCG TABLET PO SCH (07:00)
[2017-03-12] MEDS: BUDESONIDE 0.5 MG/2 ML NEBU. NEB SCH (07:21)
[2017-03-12 07:59] VITALS: BP 112/63
[2017-03-12] MEDS ORDERED: TORS20TA2 PO (08:49)
[2017-03-12] MEDS: SPIRONOLACTONE 25 MG TABLET PO SCH (09:02)
[2017-03-12] MEDS: ASPIRIN ENTERIC COATED 81 MG TABLET.DR. PO SCH (09:02)
[2017-03-12] MEDS: MAGNESIUM OXIDE 400 MG TABLET PO SCH (09:02)
[2017-03-12] MEDS: CLOPIDOGREL BISULFATE 75 MG TABLET PO SCH (09:02)
[2017-03-12] MEDS: POTASSIUM CHLORIDE 20 MEQ TABLET.ER. PO SCH ×2 (09:03→11:49)
[2017-03-12] MEDS: DIGOXIN 125 MCG TABLET. PO SCH (09:03)
[2017-03-12] MEDS: METOPROLOL SUCC 24HR ER 25 MG TAB.ER.24H. PO SCH (09:03)
[2017-03-12] MEDS: ESCITALOPRAM 10 MG TABLET. PO SCH (09:04)
[2017-03-12 10:37] VITALS: BP 106/64
--- NOTE | 2017-03-12 11:52 | PDOC ---
CARDIO Progress Notes Date and Time Date of Service 03/12/17 Time of Evaluation 1130 Subjective Subjective: No shortness of breath, No Palpitations, Other (5/10 chest pain) Vitals Vitals Vital Signs Date Time Temp Pulse Resp B/P (MAP) Pulse Ox O2 Delivery O2 Flow Rate FiO2 03/12/17 10:37 97.9 68 18 106/64 (78) 95 Room Air 97.9 03/12/17 07:59 2.0 Weight Weight [ ] Input and Output Intake and Output Intake and Output 03/12/17 07:00 Intake Total 1400 ml Output Total 1080 ml Balance 320 ml Intake Oral 1400 ml Output Urine Total 1080 ml Laboratory Labs Laboratory Tests Test 03/12/17 03:15 Sodium Level 139 mmol/L (136-145) Potassium Level 3.7 mmol/L (3.5-5.1) Chloride Level 103 mmol/L (98-107) Carbon Dioxide Level 32 mmol/L (21-32) Anion Gap 4 (6-14) Blood Urea Nitrogen 11 mg/dL (7-20) Creatinine 1.1 mg/dL (0.6-1.0) Estimated GFR (Cockcroft-Gault) 66.6 Glucose Level 103 mg/dL (70-99) Calcium Level 8.6 mg/dL (8.5-10.1) Physical Exam HEENT: Neck Supple W Full Motion Chest: Symmetric LUNGS: Other (diminished bases ) Heart: S1S2, RRR, murmurs (2/6 systolic mumur ) Abdomen: Soft N/T Extremities: No Edema, No Calf Tenderness Neurology: alert, oriented, follow commands, other (drowsy) Assessment Assessment 1. Acute on chronic systolic HF with cardiomyopathy; LVEF <20% 2. 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 Chest pain, atypical 4. Hypothyroidism 5. Hypertension 6. Hyperlipidemia 7. Hypokalemia Recommendations RHC revealed minimally elevated filling pressures, no pulHTN; continue with routine oral diuresis Discussed fluid and dietary restriction, along with weight monitoring. February discharge from a CV standpoint; follows closely with [facility] clinic and has f/u appt April 09 with scheduled echocardiogram. DARIANA WHEELER APRN March 12, 2017 11:52
[2017-03-12 14:52] VITALS: BP 92/55
--- NOTE | 2017-03-12 21:15 | DS ---
DATE OF DISCHARGE: 03/12/2017 ADMITTING DIAGNOSES: 1. Bvcsm-ki-luybtyk combined systolic and diastolic congestive heart failure. 2. Atrial fibrillation. 3. Hypertension. 4. History of recurrent deep venous thromboses. 5. Asthma. 6. Chronic respiratory failure, on home oxygen. 7. Gastroesophageal reflux disease. 8. Hypothyroidism. 9. Previous cerebrovascular accident. 10. History of Graves' disease. 11. Migraine headaches. PAST SURGICAL HISTORY: Significant for and hysterectomy, implantable fibrillator placement, thyroidectomy. HISTORY OF PRESENT ILLNESS: The patient is a 41-year-old -[place] female with known cardiomyopathy with low ejection fraction of 20%. She is followed at [facility], has recently transferred to our care at [facility], but continues to follow with Heart Failure Clinic at [facility]. She came to the Emergency Room with increasing shortness of breath and palpitations. She was found to be in congestive heart failure and diuresis was begun with IV Lasix. The patient did improve, but continued to have chronic shortness of breath and fatigue due to ongoing heart disease. The patient was back to baseline, so plans to get transfer her home were made. She was discharged to home to follow up in 1 week in the [facility] and with [facility] within the week. The patient had a VQ scan showing low probability of PE. Chest x-ray findings were minimal for congestive heart failure. KYLER MAHAN MD DR: DINH/theresa JOB#: [id number] / [id number]
== END 2017-03-12 15:30 | disposition home or self-care (01) | DRG 286 ==
LOC: ER 15:38 → 2 NORTH 19:09
PROVIDERS: ADMIT Family Medicine; ATTEND Family Medicine
PROC: 4A023N6 Measurement of Cardiac Sampling and Pressure, Right Heart, Percutaneous Approach (ICD-10-PCS; principal; 2017-03-11)
PROC: B2111ZZ Fluoroscopy of Multiple Coronary Arteries using Low Osmolar Contrast (ICD-10-PCS; 2017-03-11)
DX: I50.43 Acute on chronic combined systolic (congestive) and diastolic (congestive) heart failure (principal); O90.3 Peripartum cardiomyopathy; J96.10 Chronic respiratory failure, unspecified whether with hypoxia or hypercapnia; I42.9 Cardiomyopathy, unspecified; I11.0 Hypertensive heart disease with heart failure; K21.9 Gastro-esophageal reflux disease without esophagitis; Z86.73 Personal history of transient ischemic attack (TIA), and cerebral infarction without residual deficits; I48.0 Paroxysmal atrial fibrillation; G43.909 Migraine, unspecified, not intractable, without status migrainosus; E03.9 Hypothyroidism, unspecified; E87.6 Hypokalemia; Z99.81 Dependence on supplemental oxygen; E05.00 Thyrotoxicosis with diffuse goiter without thyrotoxic crisis or storm; G89.29 Other chronic pain; M79.1 Myalgia; E78.5 Hyperlipidemia, unspecified; Z79.02 Long term (current) use of antithrombotics/antiplatelets; Z86.718 Personal history of other venous thrombosis and embolism; Z90.710 Acquired absence of both cervix and uterus; Z88.7 Allergy status to serum and vaccine; Z91.041 Radiographic dye allergy status; Z88.8 Allergy status to other drugs, medicaments and biological substances; Z83.3 Family history of diabetes mellitus; Z79.82 Long term (current) use of aspirin; Z79.899 Other long term (current) drug therapy; Z95.810 Presence of automatic (implantable) cardiac defibrillator
CPT/HCPCS: 36415; 71010; 76705; 78582; 80048; 80053; 80061; 83735; 83880; 84132; 84439; 84443; 84484; 85027; 93005; 93451; 94640; 96374; A9540; A9558; C1773; C1892; J2250; J2270; J2405; J3010; J3480; 99285-25

== ENCOUNTER 2017-04-08 10:26 | Emergency (ER) | payer MEDICARE, OTHER ==
[~2017-04-08] VITALS: Ht 170.2 cm; Wt 113.4 kg
[~2017-04-08 10:26] MED LIST changes: +ASPI-630 PO; -ASPI81TA2 PO; -BECL8.7A IH; +BECL8.7A7 IH; +DICL100G18; -DICL100G7; -ESCI10TA10 PO; +LEXAPRO10 MG PO; -OXYC-244 PO; -OXYC-250 PO; +OXYC-327 PO; +OXYC-328 PO
[2017-04-08 11:04] LABS: BASO # 0.1 x10^3/uL (0.0-0.2); BASO % 1 % (0-3); EOS % 1 % (0-3); HEMATOCRIT 37.3 % (36.0-47.0); HEMOGLOBIN 12.7 g/dL (12.0-15.5); LYMPH % 24 % (24-48); MEAN CORPUSCULAR HEMOGLOBIN 31 pg (25-35); MEAN CORPUSCULAR HGB CONC 34 g/dL (31-37); MEAN CORPUSCULAR VOLUME 91 fL (79-100); MONO % 4 % (0-9); NEUT % 70 % (31-73); PLATELET COUNT 290 x10^3/uL (140-400); RED BLOOD COUNT 4.12 x10^6/uL (3.50-5.40); RED CELL DISTRIBUTION WIDTH 15.6 % (11.5-14.5); WHITE BLOOD COUNT 12.7 x10^3/uL (4.0-11.0)
[2017-04-08 11:18] LABS: ALBUMIN 3.6 g/dL (3.4-5.0); ALBUMIN/GLOBULIN RATIO 0.8 (1.0-1.7); C-REACTIVE PROTEIN 43.7 mg/L (0-3.3); CALCIUM 8.4 mg/dL (8.5-10.1); CREATININE 1.2 mg/dL (0.6-1.0); GFR 59.9; TOTAL BILIRUBIN 0.8 mg/dL (0.2-1.0); URIC ACID 7.6 mg/dL (2.6-6.0)
[2017-04-08 11:22] LABS: POTASSIUM 2.8 mmol/L (3.5-5.1)
[2017-04-08] MEDS ORDERED: POTASSIUM CHLORIDE 20 MEQ TABLET.ER. PO ONE (11:30)
--- NOTE | 2017-04-08 11:32 | PHYS DOC ---
Past Medical History Past Medical History: A-Fib, Asthma, Bronchitis, CHF, CVA, DVT, GERD, Hypothyroid, [place], Migraines, Stroke, Other Additional Past Medical Histor: cardiomyopathy, graves, VFIB Past Surgical History: , Hysterectomy, Pacemaker Additional Past Surgical Histo: defib, C- pulse device- removed, thyroidectomy , cardiac surgery Alcohol Use: None Drug Use: None Adult General Chief Complaint Chief Complaint: FOOT INJURY PAIN HPI HPI Patient is a 42 year old presents emergency department stating that she has having right foot pain and discomfort. She denies any trauma or injuries to the foot. Patient states that she had been on encouraged to lean for the pain and discomfort at one time which did not help with the pain. She states that she is also been on hydrocodone that has not helped the pain as well. Patient states that she has seen multiple physicians in regards to the pain and discomfort. She has been treated for gout although she had not had any elevated uric acid results. Patient states she has increased pain with ambulation. She does have some swelling noted to the foot no redness noted toes appear to be slightly warm. She has increased pain with movement of toes. Peripheral pulses are 2+. Review of Systems Review of Systems Constitutional: Denies fever or chills [] Eyes: Denies change in visual acuity, redness, or eye pain [] HENT: Denies nasal congestion or sore throat [] Respiratory: Denies cough or shortness of breath [] Cardiovascular: No additional information not addressed in HPI [] GI: Denies abdominal pain, nausea, vomiting, bloody stools or diarrhea [] : Denies dysuria or hematuria [] Musculoskeletal: Denies back pain. C/o right foot pain and discomfort Integument: Denies rash or skin lesions [] Neurologic: Denies headache, focal weakness or sensory changes [] Endocrine: Denies polyuria or polydipsia [] Current Medications Current Medications Current Medications Medications (Trade) Dose Ordered Sig/Patsy Start Time Stop Time Status Last Admin Dose Admin Acetaminophen/ Hydrocodone Bitart (Lortab 5/325) 1 tab 1X ONCE 04/08/17 12:00 04/08/17 12:01 DC 04/08/17 12:04 1 TAB Potassium Chloride (Klor-Con) 40 meq 1X ONCE 04/08/17 11:30 04/08/17 11:31 DC 04/08/17 12:04 40 MEQ Allergies Allergies Allergies Coded Allergies Type Severity Reaction Last Updated Verified EVELYN Inhibitors Allergy Severe Anaphylaxis 01/27/16 Yes Trimethobenzamide HCl Allergy Intermediate 01/27/16 Yes iodine Allergy Intermediate Hives 01/27/16 Yes metoclopramide HCl Allergy Intermediate "jaw paralysis" 01/27/16 Yes pneumococcal vaccine Allergy Intermediate unknown 01/27/16 Yes temazepam Allergy Intermediate ativan ok 02/07/17 Yes tiagabine Allergy Intermediate causes psychosis 01/27/16 Yes NSAIDS (Non-Steroidal Anti-Inflamma Adverse Reaction Intermediate FLUID RETENTION 01/27/16 Yes immune globulin,horse (equine) Adverse Reaction Intermediate HALLUCINATIONS 01/27/16 Yes Physical Exam Physical Exam Constitutional: Well developed, well nourished, no acute distress, non-toxic appearance. [] HENT: Normocephalic, atraumatic, bilateral external ears normal, oropharynx moist, no oral exudates, nose normal. [] Eyes: PERRLA, EOMI, conjunctiva normal, no discharge. [] Neck: Normal range of motion, no tenderness, supple, no stridor. [] Cardiovascular:Heart rate regular rhythm, no murmur [] Lungs & Thorax: Bilateral breath sounds clear to auscultation []] Skin: Warm, dry, no erythema, no rash. [] Back: No tenderness Extremities: Right foot tenderness, no cyanosis, no clubbing, ROM intact, no edema. Patient noted to have tenderness on the first through fifth metatarsal area on the right foot. Slight swelling noted peripheral pulses 2+ cap refill brisk less than 2 seconds good sensation noted to the toes. Neurologic: Alert and oriented X 3, normal motor function, normal sensory function, no focal deficits noted. [] Psychologic: Affect normal, judgement normal, mood normal. [] Current Patient Data Vital Signs Vital Signs Date Time Temp Pulse Resp B/P (MAP) Pulse Ox O2 Delivery O2 Flow Rate FiO2 04/08/17 12:31 74 16 148/89 (108) 100 Room Air 04/08/17 10:32 98.2 98.2 Lab Values Laboratory Tests Test 04/08/17 10:53 White Blood Count 12.7 x10^3/uL (4.0-11.0) H Red Blood Count 4.12 x10^6/uL (3.50-5.40) Hemoglobin 12.7 g/dL (12.0-15.5) Hematocrit 37.3 % (36.0-47.0) Mean Corpuscular Volume 91 fL (79-100) Mean Corpuscular Hemoglobin 31 pg (25-35) Mean Corpuscular Hemoglobin Concent 34 g/dL (31-37) Red Cell Distribution Width 15.6 % (11.5-14.5) H Platelet Count 290 x10^3/uL (140-400) Neutrophils (%) (Auto) 70 % (31-73) Lymphocytes (%) (Auto) 24 % (24-48) Monocytes (%) (Auto) 4 % (0-9) Eosinophils (%) (Auto) 1 % (0-3) Basophils (%) (Auto) 1 % (0-3) Neutrophils # (Auto) 8.9 x10^3uL (1.8-7.7) H Lymphocytes # (Auto) 3.0 x10^3/uL (1.0-4.8) Monocytes # (Auto) 0.5 x10^3/uL (0.0-1.1) Eosinophils # (Auto) 0.2 x10^3/uL (0.0-0.7) Basophils # (Auto) 0.1 x10^3/uL (0.0-0.2) Erythrocyte Sedimentation Rate 54 (0-25) H Sodium Level 138 mmol/L (136-145) Potassium Level 2.8 mmol/L (3.5-5.1) *L Chloride Level 98 mmol/L (98-107) Carbon Dioxide Level 28 mmol/L (21-32) Anion Gap 12 (6-14) Blood Urea Nitrogen 8 mg/dL (7-20) Creatinine 1.2 mg/dL (0.6-1.0) H Estimated GFR (Cockcroft-Gault) 59.9 BUN/Creatinine Ratio 7 (6-20) Glucose Level 128 mg/dL (70-99) H Uric Acid 7.6 mg/dL (2.6-6.0) H Calcium Level 8.4 mg/dL (8.5-10.1) L Total Bilirubin 0.8 mg/dL (0.2-1.0) Aspartate Amino Transferase (AST) 26 U/L (15-37) Alanine Aminotransferase (ALT) 23 U/L (14-59) Alkaline Phosphatase 95 U/L (46-116) C-Reactive Protein, Quantitative 43.7 mg/L (0-3.3) H Total Protein 8.0 g/dL (6.4-8.2) Albumin 3.6 g/dL (3.4-5.0) Albumin/Globulin Ratio 0.8 (1.0-1.7) L Laboratory Tests 04/08/17 10:53 Laboratory Tests 04/08/17 10:53 EKG EKG EKG completed on 1128 due to potassium of 2.8. Heart rate is 108 a sinus tachycardia noted no STEMI noted per Dr. Johnson. [] Radiology/Procedures Radiology/Procedures [][facility] [address] [place] [address] IMAGING REPORT Signed PATIENT: IVA UNGER ACCOUNT: [id number] : 1975 LOCATION: ER AGE: 42 SEX: F EXAM STATUS: REG ER ORD. PHYSICIAN: RUBÉN VAIL APRN REASON: right metatarsal pain no injury PROCEDURE: FOOT RIGHT 3V Three-view right foot radiographs 04/08/2017 Clinical history: Right metatarsal pain for 2 days. AP, lateral and oblique digital radiographs of the right foot were obtained. Mild hallux valgus deformity is seen. Mild to moderate degenerative changes are seen scattered throughout the interphalangeal joints of the right foot along the first MTP joint and the tarsometatarsal joints. No fracture or dislocation is seen. No subluxation is noted. Minimal enthesophyte formation is seen involving the posterior right calcaneus. Impression: Degenerative changes are seen involving the right foot as outlined above. No acute osseous abnormality is seen. DICTATED and SIGNED BY: SONYA DYKES MD DATE: 04/08/171126 CC: RUBÉN VAIL APRN; NO PCP; NON,STAFF ~ Course & Med Decision Making Course & Med Decision Making Pertinent Labs and Imaging studies reviewed. (See chart for details) Laboratory notified myself in regards to her potassium at 2.8. Patient will have an EKG completed and will be provided with potassium supplement of 40 mEq. Patient has been provided this lab result it has been instructed that she will need to follow-up with her primary care physician in the next 2 days for repeat potassium draw. Also provided with lab results that are currently back at this time. 1210 Called lab to inquire about sed rate, they stated it has approximately 30 minutes left as they though it was running and noted that it had not been preformed 30 minutes ago. Patient is aware of the delay. Plan is to place patient on norco and kelfex for cellulitis, she will followup with her pcp in 2 days for repeat K+ level. Patient was instructed that norco will cause drowsiness do not take if she needs to be alert and oriented. Patient was provided with signs and symptoms to return to the emergency department. Patient will be discharged home in stable condition. [] Dragon Disclaimer Dragon Disclaimer This electronic medical record was generated, in whole or in part, using a voice recognition dictation system. Departure Departure Impression: Primary Impression: Cellulitis of right foot Additional Impression: Gout Disposition: HOME, SELF-CARE Condition: STABLE Referrals: NO PCP (PCP) Patient Instructions: Cellulitis, [id number], Gout, [id number] Additional Instructions: Your x-ray of your foot was negative Your WBC which shows infection was elevated slightly You uric acid which show gout was elevated Your Potassium was low in which you were supplemented with potassium here in the emergency department Medication as prescribed Noroco will cause drowsiness do not take if you need to be alert and oriented Antibiotics as prescribed Followup with your traffic incident management manager in 2 days for a repeat Potassium level Return to emergency department for signs and symptoms that become worse. Scripts Hydrocodone/Apap 5-325 (NORCO 5-325 TABLET) 1 Each Tablet 1 TAB PO PRN Q6HRS Y for PAIN, #15 TAB 0 Refills Prov: RUBÉN VAIL APRN 04/08/17 Cephalexin (KEFLEX) 500 Mg Capsule 1 CAP PO BID, #20 CAP Prov: RUBÉN VAIL APRN 04/08/17 Problem Qualifiers RUBÉN VAIL APRN Apr 08, 2017 11:32
[2017-04-08] MEDS ORDERED: HYDROcodone/APAP 5/325MG 1 TAB TABLET PO ONE (12:00)
[2017-04-08] MEDS ORDERED: HYDR-971 PO (12:20)
[2017-04-08] MEDS ORDERED: CEPH-264 PO (12:20)
[2017-04-08 12:31] VITALS: BP 148/89
--- NOTE | 2017-04-09 09:38 | EKG ---
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
== END 2017-04-08 12:37 | disposition home or self-care (01) ==
LOC: ER 10:26
DX: L03.115 Cellulitis of right lower limb (principal); M10.9 Gout, unspecified; I48.91 Unspecified atrial fibrillation; J45.909 Unspecified asthma, uncomplicated; I50.9 Heart failure, unspecified; K21.9 Gastro-esophageal reflux disease without esophagitis; I25.2 Old myocardial infarction; G43.909 Migraine, unspecified, not intractable, without status migrainosus; I49.01 Ventricular fibrillation; E89.0 Postprocedural hypothyroidism; I42.9 Cardiomyopathy, unspecified; Z95.0 Presence of cardiac pacemaker; Z86.718 Personal history of other venous thrombosis and embolism; Z86.73 Personal history of transient ischemic attack (TIA), and cerebral infarction without residual deficits; Z90.710 Acquired absence of both cervix and uterus; Z95.810 Presence of automatic (implantable) cardiac defibrillator; Z88.6 Allergy status to analgesic agent; Z88.7 Allergy status to serum and vaccine; Z88.8 Allergy status to other drugs, medicaments and biological substances
CPT/HCPCS: 36415; 73630; 80053; 84550; 85027; 85651; 86140; 93005; 99285-25

== ENCOUNTER 2017-04-16 20:25 | Emergency (ER) | payer MEDICARE, OTHER ==
[~2017-04-16] VITALS: Ht 170.2 cm; Wt 113.4 kg
[~2017-04-16 20:25] MED LIST changes: +CEPH-264 PO
[2017-04-16 21:43] LABS: BASO # 0.1 x10^3/uL (0.0-0.2); BASO % 1 % (0-3); EOS % 2 % (0-3); HEMATOCRIT 37.5 % (36.0-47.0); HEMOGLOBIN 12.4 g/dL (12.0-15.5); LYMPH % 29 % (24-48); MEAN CORPUSCULAR HEMOGLOBIN 31 pg (25-35); MEAN CORPUSCULAR HGB CONC 33 g/dL (31-37); MEAN CORPUSCULAR VOLUME 94 fL (79-100); MONO % 6 % (0-9); NEUT % 63 % (31-73); PLATELET COUNT 315 x10^3/uL (140-400); RED BLOOD COUNT 3.99 x10^6/uL (3.50-5.40); RED CELL DISTRIBUTION WIDTH 15.9 % (11.5-14.5); WHITE BLOOD COUNT 14.1 x10^3/uL (4.0-11.0)
[2017-04-16 21:47] LABS: PROTHROMBIN TIME PATIENT 12.9 SEC (11.7-14.0)
[2017-04-16 21:54] LABS: BILIRUBIN,URINE NEGATIVE (NEG); GLUCOSE,URINE NEGATIVE (NEG); NITRITE,URINE NEGATIVE (NEG); PH,URINE 5.5; PROTEIN,URINE NEGATIVE (NEG-TRACE); UROBILINOGEN,URINE 0.2 mg/dL (0.2 mg/dL)
[2017-04-16 21:58] LABS: CALCIUM 9.4 mg/dL (8.5-10.1); CREATININE 0.9 mg/dL (0.6-1.0); GFR 83.5; POTASSIUM 3.4 mmol/L (3.5-5.1)
[2017-04-16 21:59] LABS: BACTERIA,URINE MANY /HPF (0-FEW); RBC,URINE 0 /HPF (0-2); SQUAMOUS EPITHELIAL CELL,UR MOD /LPF
[2017-04-16] MEDS ORDERED: HYDROmorphone 2 MG/ML VIAL IV ONE (22:00)
[2017-04-16] MEDS ORDERED: ONDANSETRON PF 4 MG/2 ML VIAL. IV ONE (22:00)
[2017-04-16 22:04] LABS: ALBUMIN 3.2 g/dL (3.4-5.0); ALBUMIN/GLOBULIN RATIO 0.7 (1.0-1.7); TOTAL BILIRUBIN 0.2 mg/dL (0.2-1.0); TOTAL PROTEIN 7.5 g/dL (6.4-8.2)
[2017-04-16] MEDS ORDERED: methylPREDNISolone SOD SUCC PF 125 MG/2 ML VIAL. IV ONE (22:30)
[2017-04-16] MEDS ORDERED: diphenhydrAMINE 50 MG/ML VIAL IVP ONE (22:30)
[2017-04-16] MEDS ORDERED: FAMOTIDINE 20 MG/2 ML VIAL IVP ONE (22:30)
[2017-04-16] MEDS ORDERED: CONTRAST GIVEN MC PRN (23:30)
[2017-04-16] MEDS ORDERED: IOHEXOL 300 MG/ML 75 ML VIAL IV ONE (23:30)
--- NOTE | 2017-04-16 23:44 | RAD ---
CT ANGIOGRAPHY CHEST dated 04/16/2017 11:20 PM Indication: Chest pain, shortness of breath midsternal chest pain for 3 days, possible pulmonary embolus. Comparison: No comparison is available. Technique: Contiguous axial imaging of the chest performed following the intravenous administration of 75 cc Omnipaque 300. Study was performed as dedicated PE protocol with thin cut coronal MIPS 3 3-D reconstructions One or more of the following individualized dose reduction techniques were utilized for this examination: 1. Automated exposure control 2. Adjustment of the mA and/or kV according to patient size 3. Use of iterative reconstruction technique Findings: Contrast bolus is adequate. No evidence of central, lobar or segmental pulmonary embolus. Subsegmental branches not well evaluated based on technique. Heart size is moderately enlarged. No pericardial effusion. No mediastinal, hilar or axillary lymphadenopathy. Patient is status post median sternotomy. Left subclavian pacer in place with old epicardial pacing leads in place. Central airways are patent. Mild diffuse bronchial wall thickening. Patchy increased density in the right upper lobe. There is minimal scar or atelectasis at the left lung base. No consolidation or pleural effusion. No pneumothorax. Minimal upper zone emphysema. Limited images of the upper abdomen are unremarkable. No significant bony abnormality. IMPRESSION: 1. No evidence of central, lobar or segmental pulmonary embolus. 2. Patchy groundglass opacity in the right upper lobe, nonspecific. 3. Cardiomegaly status post median sternotomy. Electronically signed by: Donte Green MD (04/16/2017 11:41 PM)
[2017-04-17] MEDS ORDERED: HYDROmorphone 2 MG/ML VIAL IV ONE
[2017-04-17 00:05] VITALS: BP 128/69
--- NOTE | 2017-04-17 00:12 | PHYS DOC ---
Past Medical History Past Medical History: A-Fib, Asthma, Bronchitis, CHF, CVA, DVT, GERD, Hypothyroid, CA, Migraines, Stroke, Other Additional Past Medical Histor: cardiomyopathy, graves, VFIB Past Surgical History: , Hysterectomy, Pacemaker Additional Past Surgical Histo: defib, C- pulse device- removed, thyroidectomy , cardiac surgery Alcohol Use: None Drug Use: None Adult General Chief Complaint Chief Complaint: PLEURISY HPI HPI Patient is a 42 year old sister significant for hypertension, CHF, COPD, asthma , DVT, hypothyroid, CA, CVA, status post AICD placement secondary to V. fib, atrial fibrillation, status post hysterectomy, presents to the ER today complaining of sharp pleuritic midsternal chest pain is been going on for 1 day now. Patient reports she does have a history of DVT and thinks she might have a PE as well too. Patient reports that this pain is not the same as the prior pain that she with her PE. Patient does not smoke drink or do any drugs. Patient is allergic to multiple medications including NSAIDs, IV contrast, iodine, Reglan, Phil inhibitors. Patient reports that she started having pain that was in her chest approximately 2 days ago and started radiating to her legs on the left side and then now she has pain on the right side as well too. Patient basically complains of pain diffusely throughout her body. Patient reports that she's had similar complaints he was in the past. Patient denies any fevers shakes chills nausea vomiting or diarrhea. Patient reports she does have a brown active cough at times. Patient has a dysuria frequency or urgency. Patient reports that the pain does not change with exertion. Patient reports pain increases with deep inspiration and coughing. Patient has any diaphoresis. Patient reports short of breath with the pain however shortness of breath is not new for her and appears to be chronic. Patient's physical exam was unremarkable. Patient had regular rate and rhythm. Lungs were clear no wheezing rales or rhonchi. Abdomen was soft nontender no rebound or guarding. Patient does have reproducible tenderness to palpation to her mid sternum. Patient's ER workup consisted of labs were unremarkable. Patient normal CBC CMP. Patient's BNP is elevated however she does have a history significant for CHF and her symptoms today are not consistent with heart failure. CTA of thorax revealed no PE. Chest x-ray unremarkable. Patient be given Dilaudid 1 mg IV 2 doses with some relief in her pain. Assessment and plan 42-year-old female who presents with reproducible pleuritic-type chest pain with a negative ER workup. Patient's CTA was negative. Patient's d-dimer was elevated which is why we get the CTA. Patient's cardiac workup was negative. Patient has been given adequate pain medications in the ER and we'll need to seek her primary care physician for further chronic management of her chest pain. Review of Systems Review of Systems Constitutional: Denies fever or chills [] Eyes: Denies change in visual acuity, redness, or eye pain [] All other review systems are negative except as documented in the history of present illness portion. Current Medications Current Medications Current Medications Medications (Trade) Dose Ordered Sig/Patsy Start Time Stop Time Status Last Admin Dose Admin Diphenhydramine HCl (Benadryl) 50 mg 1X ONCE 04/16/17 22:30 04/16/17 22:31 DC 04/16/17 23:12 50 MG Famotidine (Pepcid) 20 mg 1X ONCE 04/16/17 22:30 04/16/17 22:31 DC 04/16/17 23:12 20 MG Hydromorphone HCl (Dilaudid) 1 mg 1X ONCE 04/17/17 00:00 04/17/17 00:01 DC Info (Do NOT chart on this entry -- for MONITORING) 1 each PRN DAILY PRN 04/16/17 23:30 04/18/17 23:29 Iohexol (Omnipaque 300 Mg/ml) 75 ml 1X ONCE 04/16/17 23:30 04/16/17 23:31 DC 04/16/17 23:29 75 ML Methylprednisolone Sodium Succinate (SOLU-Medrol 125MG VIAL) 125 mg 1X ONCE 04/16/17 22:30 04/16/17 22:31 DC 04/16/17 23:13 125 MG Ondansetron HCl (Zofran) 4 mg 1X ONCE 04/16/17 22:00 04/16/17 22:01 DC 04/16/17 21:42 4 MG Allergies Allergies Allergies Coded Allergies Type Severity Reaction Last Updated Verified PHIL Inhibitors Allergy Severe Anaphylaxis 01/27/16 Yes Trimethobenzamide HCl Allergy Intermediate 01/27/16 Yes iodine Allergy Intermediate Hives 01/27/16 Yes metoclopramide HCl Allergy Intermediate "jaw paralysis" 01/27/16 Yes pneumococcal vaccine Allergy Intermediate unknown 01/27/16 Yes temazepam Allergy Intermediate ativan ok 02/07/17 Yes tiagabine Allergy Intermediate causes psychosis 01/27/16 Yes NSAIDS (Non-Steroidal Anti-Inflamma Adverse Reaction Intermediate FLUID RETENTION 01/27/16 Yes immune globulin,horse (equine) Adverse Reaction Intermediate HALLUCINATIONS 01/27/16 Yes Physical Exam Physical Exam Constitutional: Well developed, well nourished, no acute distress, non-toxic appearance. [] HENT: Normocephalic, atraumatic, bilateral external ears normal, oropharynx moist, no oral exudates, nose normal. [] Eyes: PERRLA, EOMI, conjunctiva normal, no discharge. [] Neck: Normal range of motion, no tenderness, supple, no stridor. [] Cardiovascular:Heart rate regular rhythm, Lungs & Thorax: Bilateral breath sounds clear to auscultation [] reproducible tenderness to palpation to her mid sternum. Abdomen: Bowel sounds normal, soft, no tenderness, no masses, no pulsatile masses. [] Skin: Warm, dry, no erythema, no rash. [] Back: No tenderness, no CVA tenderness. [] Extremities: No tenderness, no cyanosis, no clubbing, ROM intact, Neurologic: Alert and oriented X 3, normal motor function, normal sensory function, no focal deficits noted. [] Psychologic: Affect normal, judgement normal, mood normal. [] Current Patient Data Vital Signs Vital Signs Date Time Temp Pulse Resp B/P (MAP) Pulse Ox O2 Delivery O2 Flow Rate FiO2 04/16/17 21:43 20 04/16/17 20:35 98.4 89 125/81 (96) 100 Room Air 98.4 Lab Values Laboratory Tests Test 04/16/17 20:55 04/16/17 21:36 White Blood Count 14.1 x10^3/uL (4.0-11.0) H Red Blood Count 3.99 x10^6/uL (3.50-5.40) Hemoglobin 12.4 g/dL (12.0-15.5) Hematocrit 37.5 % (36.0-47.0) Mean Corpuscular Volume 94 fL (79-100) Mean Corpuscular Hemoglobin 31 pg (25-35) Mean Corpuscular Hemoglobin Concent 33 g/dL (31-37) Red Cell Distribution Width 15.9 % (11.5-14.5) H Platelet Count 315 x10^3/uL (140-400) Neutrophils (%) (Auto) 63 % (31-73) Lymphocytes (%) (Auto) 29 % (24-48) Monocytes (%) (Auto) 6 % (0-9) Eosinophils (%) (Auto) 2 % (0-3) Basophils (%) (Auto) 1 % (0-3) Neutrophils # (Auto) 8.9 x10^3uL (1.8-7.7) H Lymphocytes # (Auto) 4.0 x10^3/uL (1.0-4.8) Monocytes # (Auto) 0.9 x10^3/uL (0.0-1.1) Eosinophils # (Auto) 0.2 x10^3/uL (0.0-0.7) Basophils # (Auto) 0.1 x10^3/uL (0.0-0.2) Prothrombin Time 12.9 SEC (11.7-14.0) Prothrombin Time INR 1.0 (0.8-1.1) D-Dimer (Shabnam) 0.64 ug/mlFEU (0.00-0.50) H Sodium Level 140 mmol/L (136-145) Potassium Level 3.4 mmol/L (3.5-5.1) L Chloride Level 102 mmol/L (98-107) Carbon Dioxide Level 27 mmol/L (21-32) Anion Gap 11 (6-14) Blood Urea Nitrogen 10 mg/dL (7-20) Creatinine 0.9 mg/dL (0.6-1.0) Estimated GFR (Cockcroft-Gault) 83.5 BUN/Creatinine Ratio 11 (6-20) Glucose Level 62 mg/dL (70-99) L Calcium Level 9.4 mg/dL (8.5-10.1) Total Bilirubin 0.2 mg/dL (0.2-1.0) Aspartate Amino Transferase (AST) 19 U/L (15-37) Alanine Aminotransferase (ALT) 18 U/L (14-59) Alkaline Phosphatase 90 U/L (46-116) Troponin I Quantitative < 0.017 ng/mL (0.000-0.055) FC-Grt-C-Type Natriuretic Peptide 465 pg/mL (0-124) H Total Protein 7.5 g/dL (6.4-8.2) Albumin 3.2 g/dL (3.4-5.0) L Albumin/Globulin Ratio 0.7 (1.0-1.7) L Lipase 142 U/L (73-393) Urine Collection Type Unknown Urine Color Yellow Urine Clarity Clear Urine pH 5.5 Urine Specific Hegins <=1.005 Urine Protein Negative mg/dL (NEG-TRACE) Urine Glucose (UA) Negative mg/dL (NEG) Urine Ketones (Stick) Negative mg/dL (NEG) Urine Blood Negative (NEG) Urine Nitrite Negative (NEG) Urine Bilirubin Negative (NEG) Urine Urobilinogen Dipstick 0.2 mg/dL (0.2 mg/dL) Urine Leukocyte Esterase Trace (NEG) Urine RBC 0 /HPF (0-2) Urine WBC 1-4 /HPF (0-4) Urine Squamous Epithelial Cells Mod /LPF Urine Bacteria Many /HPF (0-FEW) Laboratory Tests 04/16/17 20:55 Laboratory Tests 04/16/17 20:55 EKG EKG [] Radiology/Procedures Radiology/Procedures [] Course & Med Decision Making Course & Med Decision Making Pertinent Labs and Imaging studies reviewed. (See chart for details) [] Dragon Disclaimer Dragon Disclaimer This electronic medical record was generated, in whole or in part, using a voice recognition dictation system. Departure Departure Impression: Primary Impression: Breathing painful Additional Impressions: Chest pain in adult Costochondritis Disposition: 01 HOME, SELF-CARE Condition: IMPROVED Referrals: KYLER MAHAN MD (PCP) Patient Instructions: Chest Pain (Nonspecific) Additional Instructions: Please follow up with her doctor. He should call her doctor in the morning in order to arrange for follow-up for they can help you with your pain. Problem Qualifiers MARIELA RODRIGUEZ MD Apr 17, 2017 00:12
--- NOTE | 2017-04-17 06:23 | EKG ---
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
--- NOTE | 2017-04-17 08:08 | RAD ---
Portable chest, 04/16/2017: History: Chest pain Comparison is made to a study from 03/09/2017. A left-sided transvenous pacemaker remains in place with 2 leads extending into the right heart. Old epicardial leads are also in place. There are fixation devices related to the sternum. The heart is at the upper limits of normal in size. The pulmonary vascularity is normal. No pulmonary infiltrates are seen. There is no evidence of pleural fluid. IMPRESSION: No acute cardiopulmonary abnormality is detected.
== END 2017-04-17 01:03 | disposition home or self-care (01) ==
LOC: ER 20:25
DX: M94.0 Chondrocostal junction syndrome [Tietze] (principal); Z88.8 Allergy status to other drugs, medicaments and biological substances; I50.9 Heart failure, unspecified; I42.9 Cardiomyopathy, unspecified; I48.91 Unspecified atrial fibrillation; K21.9 Gastro-esophageal reflux disease without esophagitis; Z86.73 Personal history of transient ischemic attack (TIA), and cerebral infarction without residual deficits; Z86.718 Personal history of other venous thrombosis and embolism; Z79.01 Long term (current) use of anticoagulants; J44.9 Chronic obstructive pulmonary disease, unspecified; I25.2 Old myocardial infarction; Z90.710 Acquired absence of both cervix and uterus; E89.0 Postprocedural hypothyroidism; Z95.0 Presence of cardiac pacemaker; E05.00 Thyrotoxicosis with diffuse goiter without thyrotoxic crisis or storm; G43.919 Migraine, unspecified, intractable, without status migrainosus; Z88.7 Allergy status to serum and vaccine; Z91.041 Radiographic dye allergy status
CPT/HCPCS: 36415; 71010; 71275; 80053; 81001; 83690; 83880; 84484; 85027; 85379; 85610; 87086; 93005; 96374; 96375; 96376; 99285; J1170; J1200; J2405; J2930; Q9967; S0028

== ENCOUNTER 2017-04-23 16:50 | Emergency (ER) | payer MEDICARE, OTHER ==
[2017-04-23 17:10] VITALS: BP 107/64
[2017-04-23] MEDS ORDERED: HYDROcodone/APAP 5/325MG 1 TAB TABLET PO ONE (17:30)
--- NOTE | 2017-04-23 17:31 | PHYS DOC ---
Past Medical History Past Medical History: A-Fib, Asthma, Bronchitis, CHF, CVA, DVT, GERD, Hypothyroid, [place], Migraines, Stroke, Other Additional Past Medical Histor: cardiomyopathy, graves, VFIB Past Surgical History: , Hysterectomy, Pacemaker Additional Past Surgical Histo: defib, C- pulse device- removed, thyroidectomy , cardiac surgery Alcohol Use: None Drug Use: None Adult General Chief Complaint Chief Complaint: PAIN CONTROL HPI HPI Patient is a 42 year old female presents to the emergency department stating that she has having right foot pain and discomfort. She states that she had just seen her experimental display builder, Dr Cabral and was told to come to the emergency department for pain control as he was not able to write her for any prescriptions. Patient denies any trauma or injuries to her foot. She states that she has been seen Dr. Bass which is her primary care physician for pain control as well as he has recommended her to go to Dr. Cabral pain management physician she states that she has not had the referral made for her to follow up at this time. Patient states that she has neuropathy in the the foot and is having increased pain she does state she takes gabapentin. She states that this medication is not helping. Patient presents to the ER in a walking boot. Review of Systems Review of Systems Constitutional: Denies fever or chills [] Eyes: Denies change in visual acuity, redness, or eye pain [] HENT: Denies nasal congestion or sore throat [] Respiratory: Denies cough or shortness of breath [] Cardiovascular: No additional information not addressed in HPI [] GI: Denies abdominal pain, nausea, vomiting, bloody stools or diarrhea [] : Denies dysuria or hematuria [] Musculoskeletal: Denies back pain complaint of right foot pain and discomfort Integument: Denies rash or skin lesions [] Neurologic: Denies headache, focal weakness or sensory changes [] Endocrine: Denies polyuria or polydipsia [] Allergies Allergies Allergies Coded Allergies Type Severity Reaction Last Updated Verified EVELYN Inhibitors Allergy Severe Anaphylaxis 01/27/16 Yes Trimethobenzamide HCl Allergy Intermediate 01/27/16 Yes iodine Allergy Intermediate Hives 01/27/16 Yes metoclopramide HCl Allergy Intermediate "jaw paralysis" 01/27/16 Yes pneumococcal vaccine Allergy Intermediate unknown 01/27/16 Yes temazepam Allergy Intermediate ativan ok 02/07/17 Yes tiagabine Allergy Intermediate causes psychosis 01/27/16 Yes NSAIDS (Non-Steroidal Anti-Inflamma Adverse Reaction Intermediate FLUID RETENTION 01/27/16 Yes immune globulin,horse (equine) Adverse Reaction Intermediate HALLUCINATIONS 01/27/16 Yes Physical Exam Physical Exam Constitutional: Well developed, well nourished, no acute distress, non-toxic appearance. [] HENT: Normocephalic, atraumatic, bilateral external ears normal, oropharynx moist, no oral exudates, nose normal. [] Eyes: PERRLA, EOMI, conjunctiva normal, no discharge. [] Neck: Normal range of motion, no tenderness, supple, no stridor. [] Cardiovascular:Heart rate regular rhythm Lungs & Thorax: No respiratory distress noted Skin: Warm, dry, no erythema, no rash. [] Back: No tenderness Extremities: No tenderness, no cyanosis, no clubbing, ROM intact, no edema. [] Neurologic: Alert and oriented X 3, normal motor function, normal sensory function, no focal deficits noted. [] Psychologic: Affect normal, judgement normal, mood normal. [] Current Patient Data Vital Signs Vital Signs Date Time Temp Pulse Resp B/P (MAP) Pulse Ox O2 Delivery O2 Flow Rate FiO2 04/23/17 17:10 98.3 77 18 99 Room Air 98.3 EKG EKG [] Radiology/Procedures Radiology/Procedures [] Course & Med Decision Making Course & Med Decision Making Pertinent Labs and Imaging studies reviewed. (See chart for details) Patient was noted through [facility] to have had multiple hydrocodone prescriptions filled since 03/29. She has had a total of 72 tablets filled since 03/29/17 she is also had tramadol filled 04/21 with a total of 10 tablets filled. Patient was instructed to provide her with hydrocodone here in the emergency department that she will not be provided with a prescription for narcotics. Patient was also instructed that the emergency department does not take care of chronic pain. She was also instructed that the emergency department would not provide her with narcotics in the future. Patient agrees with treatment regimen at this time she was provided signs symptoms to return back to emergency department. Patient will be discharged home in stable condition. [] Dragon Disclaimer Dragon Disclaimer This electronic medical record was generated, in whole or in part, using a voice recognition dictation system. Departure Departure Impression: Primary Impression: Right foot pain Additional Impression: Drug-seeking behavior Disposition: 01 HOME, SELF-CARE Condition: STABLE Referrals: KYLER HENAO MD (PCP) Patient Instructions: Foot Contusion, [id number] Additional Instructions: You have been evaluated for your right foot pain and discomfort in which she state your here for pain control. Emergency department is not designed to take care of chronic pain issues therefore you need to follow-up as instructed. Activity as tolerated. Follow-up with your primary care physician Dr. Henao your experimental display builder for further pain management. Continue to wear the cam boot as you have been prescribed. You may also take Tylenol at home for pain and discomfort. Return to emergency department as needed for signs and symptoms that become worse. Problem Qualifiers RUBÉN VAIL LUMBER MOVER Apr 23, 2017 17:31
== END 2017-04-23 17:35 | disposition home or self-care (01) ==
LOC: ER 16:50
DX: M79.671 Pain in right foot (principal); G62.9 Polyneuropathy, unspecified; E89.0 Postprocedural hypothyroidism; I25.2 Old myocardial infarction; I50.9 Heart failure, unspecified; I48.91 Unspecified atrial fibrillation; I42.9 Cardiomyopathy, unspecified; E05.00 Thyrotoxicosis with diffuse goiter without thyrotoxic crisis or storm; J45.909 Unspecified asthma, uncomplicated; K21.9 Gastro-esophageal reflux disease without esophagitis; Z86.73 Personal history of transient ischemic attack (TIA), and cerebral infarction without residual deficits; Z86.718 Personal history of other venous thrombosis and embolism; Z76.5 Malingerer [conscious simulation]; Z88.7 Allergy status to serum and vaccine; Z88.8 Allergy status to other drugs, medicaments and biological substances; Z91.041 Radiographic dye allergy status; Z95.810 Presence of automatic (implantable) cardiac defibrillator
CPT/HCPCS: 99282

== ENCOUNTER 2017-10-09 09:27 | Emergency (ER) | payer MEDICARE, OTHER ==
[~2017-10-09] VITALS: Ht 170.2 cm; Wt 113.4 kg
[~2017-10-09 09:27] MED LIST changes: +DULO30CA2 PO; +LEVO150T PO; +METO-239 PO; +METO2.5T PO; -METO25TA9 PO; -METO50TA10 PO; +METO50TA29 PO
[2017-10-09] MEDS ORDERED: DEXAMETHASONE SOD PHOS 20 MG/5 ML VIAL. IM ONE (10:45)
[2017-10-09 12:37] VITALS: BP 113/66
--- NOTE | 2017-10-09 12:49 | PHYS DOC ---
Past Medical History Past Medical History: A-Fib, Asthma, Bronchitis, CHF, CVA, DVT, GERD, Hypothyroid, [place], Migraines, Stroke, Other Additional Past Medical Histor: cardiomyopathy, graves, VFIB,G6 PD DEFICIENCY Past Surgical History: , Hysterectomy, Pacemaker Additional Past Surgical Histo: defib, C- pulse device- removed, thyroidectomy , cardiac surgery Alcohol Use: None Drug Use: None Adult General Chief Complaint Chief Complaint: OTHER COMPLAINTS HPI HPI Patient is a 42 year old male with history of high cholesterol, DVTs, A. fib, CHF, who presents today complaining of bilateral lower extremity swelling and pain that began 7 days ago after she underwent what she calls "fat radiation". Patient states she went to this place in [facility], where they put something her around her abdomen which helped dissolve some of her fat. She states she was also put in a bed which was shaken for a couple minutes. Patient states since then she's had increased bilateral lower extremity pain and swelling. She is requesting pain medicine and stating she does not want to be admitted. Review of Systems Review of Systems Constitutional: Denies fever or chills [] Eyes: Denies change in visual acuity, redness, or eye pain [] HENT: Denies nasal congestion or sore throat [] Respiratory: Denies cough or shortness of breath [] Cardiovascular: No additional information not addressed in HPI [] GI: Denies abdominal pain, nausea, vomiting, bloody stools or diarrhea [] : Denies dysuria or hematuria [] Musculoskeletal: Increased swelling to bilateral lower extremity as well as pain. Integument: Denies rash or skin lesions [] Neurologic: Denies headache, focal weakness or sensory changes [] All other systems were reviewed and found to be within normal limits, except as documented in this note. Current Medications Current Medications Current Medications Medications (Trade) Dose Ordered Sig/Patsy Start Time Stop Time Status Last Admin Dose Admin Dexamethasone Sodium Phosphate (Decadron) 10 mg 1X ONCE 10/09/17 10:45 10/09/17 10:46 DC 10/09/17 10:48 10 MG Allergies Allergies Allergies Coded Allergies Type Severity Reaction Last Updated Verified EVELYN Inhibitors Allergy Severe Anaphylaxis 01/27/16 Yes Trimethobenzamide HCl Allergy Intermediate 01/27/16 Yes iodine Allergy Intermediate Hives 01/27/16 Yes metoclopramide HCl Allergy Intermediate "jaw paralysis" 01/27/16 Yes pneumococcal vaccine Allergy Intermediate unknown 01/27/16 Yes temazepam Allergy Intermediate ativan ok 02/07/17 Yes tiagabine Allergy Intermediate causes psychosis 01/27/16 Yes NSAIDS (Non-Steroidal Anti-Inflamma Adverse Reaction Intermediate FLUID RETENTION 01/27/16 Yes immune globulin,horse (equine) Adverse Reaction Intermediate HALLUCINATIONS 01/27/16 Yes Physical Exam Physical Exam Constitutional: Well developed, well nourished, no acute distress, non-toxic appearance. [] HENT: Normocephalic, atraumatic, bilateral external ears normal, oropharynx moist, no oral exudates, nose normal. [] Eyes: PERRLA, EOMI, conjunctiva normal, no discharge. [] Neck: Normal range of motion, no tenderness, supple, no stridor. [] Cardiovascular:Heart rate regular rhythm, no murmur [] Lungs & Thorax: Bilateral breath sounds clear to auscultation [] Abdomen: Bowel sounds normal, soft, no tenderness, no masses, no pulsatile masses. [] Skin: Warm, dry, no erythema, no rash. [] Back: No tenderness, no CVA tenderness. [] Extremities: Bilateral lower extremities with +1 edema. No tenderness on exam to bilateral lower extremities. Full range of motion to bilateral lower extremities. +2 bilateral pedal pulses. Neurologic: Alert and oriented X 3, normal motor function, normal sensory function, no focal deficits noted. [] Psychologic: Affect normal, judgement normal, mood normal. [] Current Patient Data Vital Signs Vital Signs Date Time Temp Pulse Resp B/P (MAP) Pulse Ox O2 Delivery O2 Flow Rate FiO2 10/09/17 12:37 96 113/66 (82) 95 Room Air 10/09/17 09:57 98.2 20 98.2 EKG EKG [] Radiology/Procedures Radiology/Procedures [] Course & Med Decision Making Course & Med Decision Making Pertinent Labs and Imaging studies reviewed. (See chart for details) Patient is in the ED with bilateral lower extremity pain and swelling after undergoing what she calls "fat radiation". She is requesting pain medication. Patient refused lab work. She was given Decadron in the ED. Her daughter came to the ED and requested we admit patient. Made a call to Dr. Donte Henao. Patient and somehow eloped from the ED. Dragon Disclaimer Dragon Disclaimer This electronic medical record was generated, in whole or in part, using a voice recognition dictation system. Departure Departure Impression: Primary Impression: Bilateral lower extremity pain Disposition: 01 HOME, SELF-CARE Condition: STABLE Referrals: DONTE HENAO MD (PCP) ESE BRUNNER APRN Oct 09, 2017 12:48
== END 2017-10-09 13:28 | disposition home or self-care (01) ==
LOC: ER 09:27
DX: M79.605 Pain in left leg (principal); M79.604 Pain in right leg; I48.91 Unspecified atrial fibrillation; J45.909 Unspecified asthma, uncomplicated; E78.00 Pure hypercholesterolemia, unspecified; G43.909 Migraine, unspecified, not intractable, without status migrainosus; E03.9 Hypothyroidism, unspecified; K21.9 Gastro-esophageal reflux disease without esophagitis; Z86.718 Personal history of other venous thrombosis and embolism; I25.2 Old myocardial infarction; I50.9 Heart failure, unspecified; Z95.0 Presence of cardiac pacemaker; Z86.73 Personal history of transient ischemic attack (TIA), and cerebral infarction without residual deficits; Z90.710 Acquired absence of both cervix and uterus; Z88.8 Allergy status to other drugs, medicaments and biological substances; Z91.041 Radiographic dye allergy status; Z88.6 Allergy status to analgesic agent
CPT/HCPCS: 96372; 99284; J1100